=== PATIENT | male | born 1980 | race Hispanic/Latino ===

== ENCOUNTER 2019-09-19 21:08 | Emergency (ER) | payer SELFPAY ==
--- NOTE | 2019-09-19 22:09 | RAD ---
XR Chest Pa Lat STANDARD HISTORY: Patient was choking and has a cough. Findings: Heart size is within normal limits considering less than optimal inspiration. There is some increased parenchymal changes in the right infrahilar region which is felt to be just on the basis of poor inspiration, no focal infiltrates. IMPRESSION: Heart size upper limits of normal. No focal infiltrative process.
[2019-09-19 22:53] LABS: #Eosinphils 0.1 thou/uL (0.0-0.7); #Lymphocytes 2.4 thou/uL (1.20-3.40); #Monocytes 0.6 thou/uL (0.11-0.59); #Neutrophils 4.5 thou/uL (1.40-6.50); %Basophils 0.6 % (0.0-1.0); %Eosinophils 1.8 % (0.0-10.0); %Lymphocytes 30.9 % (21.0-51.0); %Monocytes 7.8 % (0.0-10.0); %Neutrophils 58.8 % (42.0-75.0); Hemoglobin 15.1 g/dL (14.0-18.0); Mean Corpuscular HGB CONC 36.2 g/dL (32.0-36.0); Mean Corpuscular Hemoglobin 32.1 pg (27.0-31.0); Mean Corpuscular Volume 88.5 fL (78.0-98.0); Mean Platelet Volume 8.4 fL (7.4-10.4); Platelet Count 163 thou/uL (130-400); RBC Distribution Width 10.8 % (11.5-14.5); Red Blood Cell (RBC) Count 4.71 mill/uL (4.70-6.10); White Blood Cell (WBC) Count 7.7 thou/uL (4.8-10.8)
[2019-09-19 23:03] LABS: Anion Gap 22 mmol/L (10-20); BUN (Urea Nitrogen) 10 mg/dL (8.9-20.6); Calc. Creatinine Clearance 0 mL/min (70-130); Calcium 9.2 mg/dL (7.8-10.44); Carbon Dioxide 20 mmol/L (22-29); Chloride 95 mmol/L (98-107); Estimated GFR-MDRD 89; Glucose 477 mg/dL (70-105); Potassium 3.8 mmol/L (3.5-5.1); Sodium 133 mmol/L (136-145)
[2019-09-20] MEDS ORDERED: Insulin Regular 300 UNITS/3 ML VIAL ONE (02:44)
--- NOTE | 2019-09-21 14:25 | EKG ---
Test Reason : Blood Pressure : / mmHG Vent. Rate : 102 BPM Atrial Rate : 102 BPM P-R Int : 150 ms QRS Dur : 104 ms QT Int : 360 ms P-R-T Axes : 046 059 056 degrees QTc Int : 469 ms Sinus tachycardia Possible Inferior infarct , age undetermined Abnormal ECG Confirmed by RAISA KELSEY MD ([id number]), editorial cartoonist DAVID CROSS ([id number]) on 09/21/2019 2:25:15 PM Referred By: Confirmed By:RAISA KELSEY MD
== END 2019-09-20 03:52 | disposition home or self-care (01) ==
LOC: ERS 21:08
DX: E11.65 Type 2 diabetes mellitus with hyperglycemia (principal); F17.210 Nicotine dependence, cigarettes, uncomplicated
CPT/HCPCS: 36415; 36416; 71046; 80048; 82010; 85025; 93005; 96361; 96374; J1815

== ENCOUNTER 2020-06-14 10:10 | Inpatient (IN) | payer OTHER, SELFPAY ==
[2020-06-14] MEDS ORDERED: Ketorolac Tromethamine 30 MG/ML VIAL ONE (10:53)
[2020-06-14] MEDS ORDERED: Acetaminophen 325 MG TAB ONE (10:53)
[2020-06-14 11:06] LABS: #Eosinphils 0.2 thou/uL (0.0-0.7); #Lymphocytes 2.3 thou/uL (1.20-3.40); #Monocytes 0.5 thou/uL (0.11-0.59); %Basophils 0.3 % (0.0-1.0); %Eosinophils 2.3 % (0.0-10.0); %Lymphocytes 22.9 % (21.0-51.0); %Monocytes 5.2 % (0.0-10.0); %Neutrophils 69.2 % (42.0-75.0); Hemoglobin 13.6 g/dL (14.0-18.0); Mean Corpuscular HGB CONC 34.6 g/dL (32.0-36.0); Mean Corpuscular Hemoglobin 31.2 pg (27.0-31.0); Mean Corpuscular Volume 90.1 fL (78.0-98.0); Mean Platelet Volume 7.5 fL (7.4-10.4); Platelet Count 352 thou/uL (130-400); RBC Distribution Width 10.6 % (11.5-14.5); Red Blood Cell (RBC) Count 4.37 mill/uL (4.70-6.10)
[2020-06-14 11:35] LABS: Lactic Acid 1.8 mmol/L (0.5-2.2)
[2020-06-14 11:37] LABS: Albumin 3.8 g/dL (3.5-5.0); Anion Gap 14 mmol/L (10-20); BUN (Urea Nitrogen) 30 mg/dL (8.9-20.6); Bilirubin, Total 0.3 mg/dL (0.2-1.2); Calc. Creatinine Clearance 0 mL/min (70-130); Calcium 9.6 mg/dL (7.8-10.44); Carbon Dioxide 26 mmol/L (22-29); Chloride 97 mmol/L (98-107); Estimated GFR-MDRD 84; Glucose 381 mg/dL (70-105); Potassium 5.2 mmol/L (3.5-5.1); Protein, Total 7.9 g/dL (6.0-8.3); Sodium 132 mmol/L (136-145)
[2020-06-14 11:38] LABS: ALT (SGPT) 49 U/L (8-55); AST (SGOT) 25 U/L (5-34); Alkaline Phosphatase 95 U/L (40-110); Globulin 4.1 g/dL (2.4-3.5)
--- NOTE | 2020-06-14 12:14 | CT ---
EXAM: CT NECK SOFT TISSUE POST CONTRAST: HISTORY:Infection. Infection the back of the neck. Worsening. Evaluate for possible abscess. COMPARISON:None CORRELATION:None FINDINGS: Brain parenchyma: No pathologic enhancement of the visualized brain parenchyma. Sinuses: Adequate aeration of the visualized paranasal sinuses and mastoid air cells. Orbits: Appropriate location of the ocular lenses. Symmetric attenuation the optic nerves and ocular rectus muscles. Retrobulbar fat is preserved. Nasopharynx:Adequate aeration. No mucosal abnormality. Oral cavity:Aerodigestive tract is patent. No mucosal abnormality. Limited evaluation of the oral cav ity due to dental amalgam artifact. Midline fatty raphae of the tongue is preserved. Hypopharynx: No mucosal abnormality. Larynx: No mucosal abnormality. Paraspinal muscles: Symmetric attenuation of the paraspinal muscles and symmetric attenuation of the sternocleidomastoid muscles.. Parotid and salivary glands: Symmetric attenuation of the parotid and submandibular glands Thyroid gland: Unremarkable. Spine: Vertebral body height is maintained. No fracture. No significant central canal stenosis or sig nificant neural foraminal narrowing. Limited evaluation due to technique. Lymph nodes: No evidence of lymphadenopathy by size criteria Lung apices and upper mediastinum: No acute abnormality. Soft tissues: There is induration and edema involving the posterior soft tissues starting at the occi put and extending to the CT for level. The edema is somewhat heterogeneous, not well-defined and may represent a developing fluid collection/abscess. Given the ill-defined borders, drainage is not l ikely possible at this time. There is mild hyperemia reaction of the underlying adventitia which is just superficial to the posterior paraspinal muscles and muscles at the base of the scalp. Obvious in tramuscular edema/abscess is not appreciated. IMPRESSION: 1. Infectious and inflammatory changes along the posterior soft tissues as described above. This abno rmality measures at least 9.0 x 2.6 cm in the axial plane, at the skull base
[2020-06-14] MEDS ORDERED: Vancomycin 1 GM/200 ML BAG ONE (13:10)
[2020-06-14] MEDS ORDERED: Clindamycin/D5W 900 mg/50 ml Premix Bag ONE (13:10)
[2020-06-14] MEDS ORDERED: Cefepime 2 GM VIAL ONE (13:10)
[2020-06-14] MEDS ORDERED: Iopamidol-370 76% 500 ML 1 ML ONE (15:19)
[2020-06-14] MEDS ORDERED: Ondansetron PF 4 MG/2 ML Vial IVP PRN (15:45)
[2020-06-14] MEDS ORDERED: Ondansetron ODT 4 MG TAB SL PRN (15:45)
[2020-06-14] MEDS ORDERED: Acetaminophen 325 MG TAB PO PRN ×2 (15:45→15:56)
[2020-06-14] MEDS ORDERED: Dextrose 5% in Water 1,000 ML IV PRN (15:56)
[2020-06-14] MEDS ORDERED: Dextrose 50% Abboject 50 ML SYRINGE SLOW IVP PRN (15:56)
[2020-06-14] MEDS ORDERED: hydrALAZINE 20 MG/ML VIAL SLOW IVP PRN (15:56)
[2020-06-14] MEDS ORDERED: cloNIDine 0.1 MG TAB PO PRN (16:24)
[2020-06-14 16:32] VITALS: BMI 23.8
[2020-06-14] MEDS ORDERED: cefTRIAXone\\ROCEPHIN 1 GM in Sodium Chloride 0.9% 100 ML IVPB SCH (17:00)
[2020-06-14] MEDS: HumaLOG 300 UNITS/3 ML VIAL SC PRN ×2 (17:20→20:30)
[2020-06-14] MEDS ORDERED: traMADol HCl 50 MG TAB PO SCH (20:15)
[2020-06-14] MEDS: Famotidine 20 MG TAB PO SCH (20:29)
[2020-06-14] MEDS ORDERED: Vancomycin 1 GM in Premix Bag 1 BAG IVPB SCH (21:00)
--- NOTE | 2020-06-14 21:46 | HP ---
PRIMARY CARE PHYSICIAN: The patient currently does not have a primary care physician. CHIEF COMPLAINT: Pain and swelling in the neck. HISTORY OF PRESENT ILLNESS: Mr. Miguel A Brady is a 39-year-old gentleman, who has a history of diabetes mellitus. He says that about 2 weeks ago, he noticed pain and swelling in the back of his neck. This history was obtained through the aid of the tax associate attorney service and the tax associate attorney was Dean, #[id number]. Mr. Grady is a 39-year-old gentleman, who reports pain in the back of his neck which started about 2 weeks ago. He attributed to working out in the sun, where he has been getting a rash on the back of the neck, but then the rash got progressively worse to the point where he could barely bend his neck. He went to a local clinic and was prescribed some antibiotics, which did not help. He denies any injury. He denies any insect bite, etc. As a result, he came to the ER for evaluation. CT scan was done of the neck, which shows some soft tissue swelling. No evidence of any abscess, but he is being admitted for further evaluation. Otherwise, the patient denies any fevers, no chills, no nausea, no vomiting, no chest pain, no shortness of breath, no other symptoms. REVIEW OF SYSTEMS: All systems were reviewed and are negative except for that mentioned in the history of present illness. PAST MEDICAL HISTORY: Significant for diabetes mellitus. PAST SURGICAL HISTORY: Negative. ALLERGIES: NO KNOWN DRUG ALLERGIES. SOCIAL HISTORY: He is , but his lives in [place]. No children. He is a nonsmoker. He occasionally drinks, but he says he quit a month ago. FAMILY HISTORY: Diabetes in his mother. CURRENT MEDICATIONS: Include metformin. PHYSICAL EXAMINATION: GENERAL: He is alert and oriented. He appears to be in no acute distress. He is well developed and well nourished. VITAL SIGNS: Blood pressure was 134/91, heart rate 80, respiratory rate of 18, temperature is 98.5, and O2 saturation is 100% on room air. HEENT: Pupils are equal, round, and reactive. Extraocular muscles are intact. Sclerae anicteric. Throat, no erythema. NECK: He does have a fairly large area of induration and redness on the posterior aspect of his neck extending into the lower part of the scalp. There is an area of some vesicular looking lesions and it extends up into the upper back. There is no evidence of any fluctuance. LUNGS: Clear to auscultation. No wheezing. No rales. No rhonchi. CARDIOVASCULAR: He has a normal S1 and S2. There is no S3 or S4. No murmurs, clicks, or rubs. ABDOMEN: Soft. It is nontender, nondistended. Positive for bowel sounds. No rebound. No guarding. No organomegaly. EXTREMITIES: The neck changes as previously mentioned and no other upper or lower extremity changes. NEUROLOGIC: Cranial nerves 2 through 12 are intact. SKIN AND INTEGUMENT: The skin changes as previously mentioned. LABORATORY RESULTS: Sodium 132, potassium 5.2, chloride is 97, CO2 is 26, BUN of 30, creatinine 1.0, glucose is 381. White blood cell count is 10, hemoglobin 13.6, hematocrit is 39.4, and platelet count 352. ASSESSMENT: This is a pleasant 39-year-old gentleman, who has a cellulitis of the neck and has failed outpatient treatment. With regards to the neck, it appears as if there is actually more inflammatory change without, infection as opposed to purely infectious change and this could represent just a severe burn. However cellulitis is also a possibility. He will be brought into the hospital and placed on IV antibiotics to cover the usual organisms including Staph and strep and have the area marked and follow him clinically. We will also place cool compress to the area as well. Diabetes mellitus. We will continue metformin, as well as sliding scale insulin. Deep venous thrombosis prophylaxis will be with SCDs. Job ID: [id number] [facility]
[2020-06-15] MEDS: Vancomycin HCl 1.25 GM in Sodium Chloride 0.9% 250 ML 250 ML IVPB SCH ×2 (02:08→14:12)
[2020-06-15 05:49] LABS: #Eosinphils 0.3 thou/uL (0.0-0.7); #Monocytes 0.7 thou/uL (0.11-0.59); #Neutrophils 5.3 thou/uL (1.40-6.50); %Basophils 0.3 % (0.0-1.0); %Eosinophils 3.3 % (0.0-10.0); %Lymphocytes 32.6 % (21.0-51.0); %Neutrophils 56.7 % (42.0-75.0); Hemoglobin 12.6 g/dL (14.0-18.0); Mean Corpuscular HGB CONC 33.1 g/dL (32.0-36.0); Mean Corpuscular Hemoglobin 30.1 pg (27.0-31.0); Mean Corpuscular Volume 90.8 fL (78.0-98.0); Mean Platelet Volume 7.4 fL (7.4-10.4); Platelet Count 330 thou/uL (130-400); RBC Distribution Width 10.7 % (11.5-14.5); Red Blood Cell (RBC) Count 4.19 mill/uL (4.70-6.10); White Blood Cell (WBC) Count 9.3 thou/uL (4.8-10.8)
[2020-06-15 06:06] LABS: Anion Gap 12 mmol/L (10-20); BUN (Urea Nitrogen) 18 mg/dL (8.9-20.6); Calc. Creatinine Clearance 139 mL/min (70-130); Calcium 8.8 mg/dL (7.8-10.44); Carbon Dioxide 23 mmol/L (22-29); Chloride 103 mmol/L (98-107); Estimated GFR-MDRD Greater than 90; Glucose 214 mg/dL (70-105); Potassium 4.4 mmol/L (3.5-5.1); Sodium 134 mmol/L (136-145)
[2020-06-15] MEDS: HumaLOG 300 UNITS/3 ML VIAL SC PRN ×3 (06:21→20:07)
[2020-06-15] MEDS: Famotidine 20 MG TAB PO SCH ×2 (07:46→20:06)
--- NOTE | 2020-06-15 11:09 | PDOC.HOSPP ---
- Subjective Encounter Date: 06/15/20 Encounter Time: 08:40 Subjective: Patient seen in follow-up regarding neck infection. He reports pain over the back of his neck. Denies any fevers or chills. - Objective Vital Signs & Weight: Vital Signs (12 hours) Temp Pulse Resp BP Pulse Ox 06/15/20 08:00 100 06/15/20 07:27 98.9 F 84 20 105/73 100 06/15/20 04:15 98.0 F 84 16 136/90 100 06/15/20 00:05 97.8 F 79 16 150/93 H 100 Weight Weight 156 lb 14.4 oz I&O: 06/14/20 06/15/20 06/16/20 06:59 06:59 06:59 Intake Total 645 360 Balance 645 360 Result Diagrams: 06/15/20 05:27 06/15/20 05:15 Additional Labs: Accuchecks 06/14/20 16:33 POC Glucose 268 H I reviewed patient's labs and MAR Hospitalist ROS - Review of Systems Constitutional: denies: fever, chills, sweats, weakness, malaise Cardiovascular: denies: chest pain, palpitations, orthopnea, paroxysmal noc. dyspnea, edema, light headedness Gastrointestinal: denies: nausea, vomiting, abdominal pain, diarrhea, constipation, melena, hematochezia Genitourinary: denies: dysuria, frequency, incontinence, hematuria, retention Musculoskeletal: reports: neck pain. denies: shoulder pain, arm pain, back pain, hand pain, leg pain, foot pain Neurological: denies: weakness, numbness, incoordination, change in speech, confusion, seizures - Medication Medications: Active Medications Generic Name Dose Route Start Last Admin Trade Name Freq PRN Reason Stop Dose Admin Acetaminophen 650 mg 06/14/20 15:56 06/14/20 17:18 Acetaminophen 325 Mg Tab PO 650 mg Q4H PRN Administration Headache/Fever/Mild Pain (1-3) Famotidine 20 mg 06/14/20 21:00 06/15/20 07:46 Famotidine 20 Mg Tab PO 20 mg BID PAOLO Administration Ceftriaxone Sodium 1 gm/ 100 mls @ 200 mls/hr 06/14/20 17:00 06/14/20 17:20 Sodium Chloride IVPB 100 mls 1700 PAOLO Administration Vancomycin HCl 1.25 gm/ Sodium 250 mls @ 166.667 mls/hr 06/15/20 02:00 06/15/20 02:08 Chloride IVPB 250 mls 0200,1400 PAOLO Administration Insulin Human Lispro 0 units 06/14/20 15:56 06/15/20 06:21 Humalog 300 Units/3 Ml Vial SC 4 unit .MODERATE SLIDING SC PRN Administration Moderate Correctional Scale Insulin Human Lispro 0 units 06/14/20 15:56 06/14/20 20:30 Humalog 300 Units/3 Ml Vial SC 4 unit .BEDTIME SLIDING SC PRN Administration Bedtime Correctional Scale - Exam General Appearance: awake alert Eye: anicteric sclera ENT: normocephalic atraumatic Neck: supple, symmetric, no thyromegaly Neck - other findings: Swelling over the back of the neck, mildly tender, in the paraspinal region Heart: RRR, no gallops, no rubs, normal peripheral pulses Respiratory: CTAB, no wheezes, no rales, no ronchi, normal chest expansion Gastrointestinal: soft, non-tender, non-distended, normal bowel sounds Extremities: no cyanosis Skin: normal turgor Musculoskeletal: no muscle wasting Psychiatric: normal affect, normal behavior, oriented to person, oriented to place Hosp A/P (1) Neck infection Code(s): L08.9 - LOCAL INFECTION OF THE SKIN AND SUBCUTANEOUS TISSUE, UNSP Status: Acute (2) Hyponatremia Code(s): E87.1 - HYPO-OSMOLALITY AND HYPONATREMIA Status: Acute (3) Diabetes mellitus type 2 in nonobese Code(s): E11.9 - TYPE 2 DIABETES MELLITUS WITHOUT COMPLICATIONS Status: Chr onic (4) Hypertension Code(s): I10 - ESSENTIAL (PRIMARY) HYPERTENSION Status: Chronic (5) Dyslipidemia Code(s): E78.5 - HYPERLIPIDEMIA, UNSPECIFIED Status: Chronic (6) Hyperkalemia Code(s): E87.5 - HYPERKALEMIA Status: Resolved - Plan Unclear whether we are dealing with a true infection in the paraspinal muscles. Patient is afebrile, does not have leukocytosis. We will continue ceftriaxone for now and consult ID service for opinion and help with management. Hyponatremia mild, likely asymptomatic. Resume glipizide and metformin, continue Accu-Cheks and insulin sliding scale. Resume lisinopril 20 mg daily, continue to monitor vital signs and titrate antih ypertensives as needed. Resume statin.
[2020-06-15 12:12] LABS: SARS-CoV-2 MS2 Positive; SARS-CoV-2 N Gene Negative; SARS-CoV-2 S Gene Negative; SARS-CoV-2 by NAA Not Detected (NotDetected); SARS-CoV-2 orf1ab Negative
--- NOTE | 2020-06-15 13:33 | CON ---
DATE OF CONSULTATION: 06/15/2020 REASON FOR CONSULTATION: Inflammatory process in the posterior neck. HISTORY OF PRESENT ILLNESS: A 39-year-old who does not have any major past medical history. 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 Now, it developed into overt inflammatory process over the past few days and he was admitted, started on broad-spectrum coverage. Denies headaches. No visual symptoms, sore throat, odynophagia, or dysphagia. No cough or sputum production or chest pain. No dyspnea. No abdominal pain or diarrhea. No joint symptoms. Moves extremities equally. PAST MEDICAL HISTORY: He has had a few minor things that led to ER visits like back pain in months. He had an episode of choking after eating chicken. He does not take medication routinely, he has been diagnosed with type 2 diabetes now and hyperlipidemia. CURRENT MEDICATIONS: Include: 1. Ceftriaxone. 2. Vancomycin. 3. Zocor. 4. Insulin. 5. Pepcid. 6. Glipizide. SOCIAL HISTORY: He is , lives with a and children, lives in [place]. ALLERGIES: NO ALLERGY HISTORY. PHYSICAL EXAMINATION: VITAL SIGNS: Essentially normal. Slight elevation of systolic blood pressure. SKIN: The area of erythema and swelling of the posterior neck, starting at the occiput in a very symmetric distribution, extending towards the mid level of his posterior neck region with moderate tenderness. No purulent drainage noted. A few areas of folliculitis noted. No lymphadenopathy. HEENT: Ocular movements conjugate. Oral cavity normal. NECK: Supple. LUNGS: Symmetric, clear breath sounds. HEART: S1 and S2. Regular rate. No S3 or S4. ABDOMEN: Soft, not distended or tender. No ascites. No bladder distention. EXTREMITIES: No joint inflammatory activity. Moves extremities equally. NEUROLOGIC: Cognitive function appears to be intact. Speech is normal, recollection, orientation, etc. LABORATORY DATA: Latest white cell count 9.3, hemoglobin 12.6, MCV 90, and platelets 330. Creatinine 0.73 and sodium 134. ASSESSMENT: 1. Type 2 diabetes. 2. Hyperlipidemia. 3. Inflammatory process associated with folliculitis. 4. Cellulitis, likely early abscess formation in the posterior neck. DISCUSSION: Most likely scenario is staphylococcal folliculitis with abscess, phlegmon posterior neck region, will likely require surgical debridement. I am not sure he is ready now for it, but I agree with the current regimen, probably switch him to cefazolin instead of Rocephin, which has less protein binding. Job ID: [id number] [facility] [place]
[2020-06-15] MEDS: CEFAZOLIN 2 GM in Premix Bag 1 BAG IVPB SCH ×2 (14:48→21:23)
[2020-06-15] MEDS: metFORMIN 500 MG TAB PO SCH (17:16)
[2020-06-15] MEDS: traMADol HCl 50 MG TAB PO PRN (17:16)
[2020-06-15] MEDS: Simvastatin 5 MG TAB PO SCH (20:07)
[2020-06-16 01:29] LABS: Vancomycin, Trough 9.1 ug/mL
[2020-06-16] MEDS: Vancomycin HCl 1.25 GM in Sodium Chloride 0.9% 250 ML 250 ML IVPB SCH ×3 (02:04→17:15)
[2020-06-16] MEDS: traMADol HCl 50 MG TAB PO PRN ×2 (04:48→19:53)
[2020-06-16] MEDS: CEFAZOLIN 2 GM in Premix Bag 1 BAG IVPB SCH ×3 (05:15→22:46)
[2020-06-16] MEDS: HumaLOG 300 UNITS/3 ML VIAL SC PRN ×2 (05:50→11:45)
[2020-06-16] MEDS: Lisinopril 20 MG TAB PO SCH (07:58)
[2020-06-16] MEDS: metFORMIN 500 MG TAB PO SCH ×2 (07:59→17:15)
[2020-06-16] MEDS: glipiZIDE 10 MG TAB PO SCH (07:59)
[2020-06-16] MEDS: Famotidine 20 MG TAB PO SCH ×2 (07:59→19:52)
[2020-06-16 08:14] LABS: #Eosinphils 0.3 thou/uL (0.0-0.7); #Lymphocytes 2.8 thou/uL (1.20-3.40); #Monocytes 0.5 thou/uL (0.11-0.59); #Neutrophils 5.5 thou/uL (1.40-6.50); %Basophils 0.2 % (0.0-1.0); %Eosinophils 3.1 % (0.0-10.0); %Lymphocytes 30.9 % (21.0-51.0); %Monocytes 5.7 % (0.0-10.0); %Neutrophils 60.1 % (42.0-75.0); Hemoglobin 13.5 g/dL (14.0-18.0); Mean Corpuscular HGB CONC 32.9 g/dL (32.0-36.0); Mean Corpuscular Hemoglobin 30.2 pg (27.0-31.0); Mean Corpuscular Volume 91.8 fL (78.0-98.0); Mean Platelet Volume 7.6 fL (7.4-10.4); Platelet Count 322 thou/uL (130-400); RBC Distribution Width 10.8 % (11.5-14.5); Red Blood Cell (RBC) Count 4.48 mill/uL (4.70-6.10); White Blood Cell (WBC) Count 9.1 thou/uL (4.8-10.8)
[2020-06-16 08:35] LABS: Anion Gap 15 mmol/L (10-20); BUN (Urea Nitrogen) 12 mg/dL (8.9-20.6); Calc. Creatinine Clearance 127 mL/min (70-130); Calcium 9.2 mg/dL (7.8-10.44); Carbon Dioxide 22 mmol/L (22-29); Chloride 101 mmol/L (98-107); Estimated GFR-MDRD Greater than 90; Glucose 263 mg/dL (70-105); Potassium 4.7 mmol/L (3.5-5.1); Sodium 133 mmol/L (136-145)
--- NOTE | 2020-06-16 13:21 | PDOC.HOSPP ---
- Subjective Encounter Date: 06/16/20 Encounter Time: 10:00 Subjective: Patient seen for follow-up regarding neck infection. Reports pain is better. Denies fever. - Objective Vital Signs & Weight: Vital Signs (12 hours) Temp Pulse Resp BP Pulse Ox 06/16/20 08:00 100 06/16/20 06:58 98.0 F 80 18 138/90 100 Weight Weight 156 lb 14.4 oz I&O: 06/15/20 06/16/20 06/17/20 06:59 06:59 06:59 Intake Total 645 1570 360 Balance 645 1570 360 Result Diagrams: 06/16/20 07:54 06/16/20 07:54 Additional Labs: Accuchecks 06/15/20 06/15/20 06/15/20 20:11 16:11 11:15 POC Glucose 262 H 209 H 306 H 06/14/20 20:11 POC Glucose 312 H I reviewed patient's labs and MAR Hospitalist ROS - Review of Systems Cardiovascular: denies: chest pain, palpitations, orthopnea, paroxysmal noc. dyspnea, edema, light headedness Musculoskeletal: reports: neck pain. denies: shoulder pain, arm pain, back pain, hand pain, leg pain, foot pain - Medication Medications: Active Medications Generic Name Dose Route Start Last Admin Trade Name Freq PRN Reason Stop Dose Admin Acetaminophen 650 mg 06/14/20 15:56 06/14/20 17:18 Acetaminophen 325 Mg Tab PO 650 mg Q4H PRN Administration Headache/Fever/Mild Pain (1-3) Famotidine 20 mg 06/14/20 21:00 06/16/20 07:59 Famotidine 20 Mg Tab PO 20 mg BID PAOLO Administration Glipizide 10 mg 06/16/20 09:00 06/16/20 07:59 Glipizide 10 Mg Tab PO 10 mg DAILY PAOLO Administration Cefazolin Sodium/Dextrose 2 gm 50 mls @ 100 mls/hr 06/15/20 14:00 06/16/20 05:15 / Device IVPB 50 mls Q8HR POALO Administration Vancomycin HCl 1.25 gm/ Sodium 250 mls @ 166.667 mls/hr 06/16/20 02:00 06/16/20 09:33 Chloride IVPB 250 mls 0200,1000,1800 PAOLO Administration Insulin Human Lispro 0 units 06/14/20 15:56 06/16/20 11:45 Humalog 300 Units/3 Ml Vial SC 4 unit .MODERATE SLIDING SC PRN Administration Moderate Correctional Scale Insulin Human Lispro 0 units 06/14/20 15:56 06/15/20 20:07 Humalog 300 Units/3 Ml Vial SC 3 unit .BEDTIME SLIDING SC PRN Administration Bedtime Correctional Scale Lisinopril 20 mg 06/16/20 09:00 06/16/20 07:58 Lisinopril 20 Mg Tab PO 20 mg DAILY PAOLO Administration Metformin HCl 500 mg 06/15/20 17:00 06/16/20 07:59 Metformin 500 Mg Tab PO 500 mg BID-WM PAOLO Administration Simvastatin 10 mg 06/15/20 21:00 06/15/20 20:07 Simvastatin 5 Mg Tab PO 10 mg HS PAOLO Administration Tramadol HCl 50 mg 06/15/20 15:01 06/16/20 04:48 Tramadol Hcl 50 Mg Tab PO 50 mg Q6H PRN Administration Pain - Exam General Appearance: awake alert Eye: anicteric sclera ENT: normocephalic atraumatic Neck: supple Neck - other findings: Swelling over the upper half of neck, mildly tender Heart: RRR, no rubs Respiratory: CTAB Gastrointestinal: soft, non-tender Extremities: no clubbing Musculoskeletal: normal tone, no muscle wasting Psychiatric: normal affect, normal behavior Hosp A/P (1) Neck infection Code(s): L08.9 - LOCAL INFECTION OF THE SKIN AND SUBCUTANEOUS TISSUE, UNSP Status: Acute (2) Hyponatremia Code(s): E87.1 - HYPO-OSMOLALITY AND HYPONATREMIA Status: Acute (3) Diabetes mellitus type 2 in nonobese Code(s): E11.9 - TYPE 2 DIABETES MELLITUS WITHOUT COMPLICATIONS Status: Chronic (4) Hypertension Code(s): I10 - ESSENTIAL (PRIMARY) HYPERTENSION Status: Chronic (5) Dyslipidemia Code(s): E78.5 - HYPERLIPIDEMIA, UNSPECIFIED Status: Chronic (6) Hyperkalemia Code(s): E87.5 - HYPERKALEMIA Status: Resolved - Plan Continue IV cefazolin, await cultures. Appreciate ID service input. Hyponatremia mild, likely asymptomatic. Sugars are still high. Start Lantus insulin 6 units daily, continue glipizide and metformin, continue Accu-Cheks and insulin sliding scale. Continue lisinopril 20 mg daily, continue to monitor vital signs and titrate antihypertensives as needed. Continue statin.
[2020-06-16] MEDS ORDERED: Insulin Glargine 6 UNITS in Pre-Filled Syringe 1 EACH SC SCH (13:30)
[2020-06-16] MEDS: Simvastatin 5 MG TAB PO SCH (19:53)
[2020-06-17 01:27] LABS: Vancomycin, Trough 16.2 ug/mL
[2020-06-17] MEDS: Vancomycin HCl 1.25 GM in Sodium Chloride 0.9% 250 ML 250 ML IVPB SCH ×3 (02:14→17:27)
[2020-06-17] MEDS: traMADol HCl 50 MG TAB PO PRN ×2 (05:12→19:49)
[2020-06-17] MEDS: CEFAZOLIN 2 GM in Premix Bag 1 BAG IVPB SCH ×3 (05:14→21:14)
[2020-06-17 07:18] LABS: #Basophils 0.1 thou/uL (0.0-0.2); #Eosinphils 0.3 thou/uL (0.0-0.7); #Lymphocytes 2.5 thou/uL (1.20-3.40); #Monocytes 0.6 thou/uL (0.11-0.59); #Neutrophils 6.1 thou/uL (1.40-6.50); %Basophils 0.9 % (0.0-1.0); %Eosinophils 3.1 % (0.0-10.0); %Lymphocytes 26.1 % (21.0-51.0); %Monocytes 5.7 % (0.0-10.0); %Neutrophils 64.2 % (42.0-75.0); Hemoglobin 12.7 g/dL (14.0-18.0); Mean Corpuscular HGB CONC 33.7 g/dL (32.0-36.0); Mean Corpuscular Hemoglobin 30.6 pg (27.0-31.0); Mean Corpuscular Volume 90.8 fL (78.0-98.0); Mean Platelet Volume 7.8 fL (7.4-10.4); Platelet Count 303 thou/uL (130-400); RBC Distribution Width 10.6 % (11.5-14.5); Red Blood Cell (RBC) Count 4.16 mill/uL (4.70-6.10); White Blood Cell (WBC) Count 9.6 thou/uL (4.8-10.8)
[2020-06-17 07:33] LABS: Anion Gap 15 mmol/L (10-20); BUN (Urea Nitrogen) 10 mg/dL (8.9-20.6); Calc. Creatinine Clearance 131 mL/min (70-130); Calcium 8.9 mg/dL (7.8-10.44); Carbon Dioxide 24 mmol/L (22-29); Chloride 101 mmol/L (98-107); Estimated GFR-MDRD Greater than 90; Glucose 263 mg/dL (70-105); Sodium 136 mmol/L (136-145)
[2020-06-17] MEDS ORDERED: Insulin Glargine 6 UNITS in Pre-Filled Syringe 1 EACH SC SCH (09:00)
[2020-06-17] MEDS: Famotidine 20 MG TAB PO SCH ×2 (09:11→19:51)
[2020-06-17] MEDS: Lisinopril 20 MG TAB PO SCH (09:11)
[2020-06-17] MEDS: glipiZIDE 10 MG TAB PO SCH (09:11)
[2020-06-17] MEDS: metFORMIN 500 MG TAB PO SCH ×2 (09:12→17:27)
[2020-06-17] MEDS ORDERED: Insulin Glargine 4 UNITS in Pre-Filled Syringe 1 EACH SC SCH (12:00)
--- NOTE | 2020-06-17 12:00 | PDOC.HOSPP ---
- Subjective Encounter Date: 06/17/20 Encounter Time: 09:40 Subjective: Patient seen in follow-up for neck infection. He still has some pain over his neck. - Objective Vital Signs & Weight: Vital Signs (12 hours) Temp Pulse Resp BP BP Pulse Ox 06/17/20 09:12 99 06/17/20 09:11 143/88 H 06/17/20 07:22 98.1 F 81 16 143/88 H 99 06/17/20 04:00 97.9 F 75 18 157/94 H 99 06/17/20 00:00 97.9 F 84 18 135/95 H 98 Weight Weight 156 lb 14.4 oz I&O: 06/16/20 06/17/20 06/18/20 06:59 06:59 06:59 Intake Total 1570 940 360 Balance 1570 940 360 Result Diagrams: 06/17/20 06:25 06/17/20 06:25 Additional Labs: Accuchecks 06/17/20 06/17/20 06/16/20 11:17 05:01 19:53 POC Glucose 269 H 261 H 169 H 06/16/20 06/16/20 06/16/20 15:46 11:16 05:20 POC Glucose 134 H 240 H 279 H I reviewed patient's labs and MAR Hospitalist ROS - Review of Systems Cardiovascular: denies: chest pain, palpitations, orthopnea, paroxysmal noc. dyspnea, edema, light headedness Gastrointestinal: denies: nausea, vomiting, abdominal pain, diarrhea, constipation, melena, hematochezia Musculoskeletal: reports: neck pain Skin: reports: rash - Medication Medications: Active Medications Generic Name Dose Route Start Last Admin Trade Name Freq PRN Reason Stop Dose Admin Acetaminophen 650 mg 06/14/20 15:56 06/14/20 17:18 Acetaminophen 325 Mg Tab PO 650 mg Q4H PRN Administration Headache/Fever/Mild Pain (1-3) Famotidine 20 mg 06/14/20 21:00 06/17/20 09:11 Famotidine 20 Mg Tab PO 20 mg BID PAOLO Administration Glipizide 10 mg 06/16/20 09:00 06/17/20 09:11 Glipizide 10 Mg Tab PO 10 mg DAILY PAOLO Administration Cefazolin Sodium/Dextrose 2 gm 50 mls @ 100 mls/hr 06/15/20 14:00 06/17/20 05:14 / Device IVPB 50 mls Q8HR PAOLO Administration Vancomycin HCl 1.25 gm/ Sodium 250 mls @ 166.667 mls/hr 06/16/20 02:00 06/17/20 09:50 Chloride IVPB 250 mls 0200,1000,1800 PAOLO Administration Insulin Glargine 6 units/ 0.06 mls @ 0 mls/hr 06/17/20 09:00 06/17/20 09:12 Miscellaneous Medication SC 0.06 mls QAM PAOLO Administration Insulin Human Lispro 0 units 06/14/20 15:56 06/16/20 11:45 Humalog 300 Units/3 Ml Vial SC 4 unit .MODERATE SLIDING SC PRN Administration Moderate Correctional Scale Insulin Human Lispro 0 units 06/14/20 15:56 06/15/20 20:07 Humalog 300 Units/3 Ml Vial SC 3 unit .BEDTIME SLIDING SC PRN Administration Bedtime Correctional Scale Lisinopril 20 mg 06/16/20 09:00 06/17/20 09:11 Lisinopril 20 Mg Tab PO 20 mg DAILY PAOLO Administration Metformin HCl 500 mg 06/15/20 17:00 06/17/20 09:12 Metformin 500 Mg Tab PO 500 mg BID-WM PAOLO Administration Simvastatin 10 mg 06/15/20 21:00 06/16/20 19:53 Simvastatin 5 Mg Tab PO 10 mg HS PAOLO Administration Tramadol HCl 50 mg 06/15/20 15:01 06/17/20 05:12 Tramadol Hcl 50 Mg Tab PO 50 mg Q6H PRN Administration Pain - Exam General Appearance: awake alert Eye: anicteric sclera ENT: normocephalic atraumatic Neck: supple Neck - other findings: Swelling over the upper half of his neck posteriorly Heart: RRR Respiratory: CTAB Gastrointestinal: soft, non-tender Psychiatric: normal affect, normal behavior Hosp A/P (1) Neck infection Code(s): L08.9 - LOCAL INFECTION OF THE SKIN AND SUBCUTANEOUS TISSUE, UNSP Status: Acute (2) Diabetes mellitus type 2 in nonobese Code(s): E11.9 - TYPE 2 DIABETES MELLITUS WITHOUT COMPLICATIONS Status: Chronic (3) Hypertension Code(s): I10 - ESSENTIAL (PRIMARY) HYPERTENSION Status: Chronic (4) Dyslipidemia Code(s): E78.5 - HYPERLIPIDEMIA, UNSPECIFIED Status: Chronic (5) Hyperkalemia Code(s): E87.5 - HYPERKALEMIA Status: Resolved (6) Hyponatremia Code(s): E87.1 - HYPO-OSMOLALITY AND HYPONATREMIA Status: Resolved - Plan Continue IV cefazolin, 1 out of 2 blood cultures is growing micrococcus, likely contaminant. Hyponatremia resolved Sugars are still high. Increase Lantus to 10 units daily, continue glipizide and metformin, continue Accu-Cheks and insulin sliding scale. Blood pressure still high. Continue lisinopril 20 mg daily, add amlodipine 2.5 mg daily, continue to monitor vital signs and titrate antihypertensives as needed. Continue statin.
[2020-06-17] MEDS ORDERED: Amlodipine 5 MG TAB PO SCH (12:15)
[2020-06-17] MEDS: HumaLOG 300 UNITS/3 ML VIAL SC PRN (12:29)
[2020-06-17] MEDS: Simvastatin 5 MG TAB PO SCH (19:51)
[2020-06-18] MEDS: Vancomycin HCl 1.25 GM in Sodium Chloride 0.9% 250 ML 250 ML IVPB SCH ×3 (02:54→18:40)
[2020-06-18 05:45] LABS: #Basophils 0.1 thou/uL (0.0-0.2); #Eosinphils 0.3 thou/uL (0.0-0.7); #Lymphocytes 2.6 thou/uL (1.20-3.40); #Monocytes 0.5 thou/uL (0.11-0.59); #Neutrophils 5.1 thou/uL (1.40-6.50); %Basophils 0.6 % (0.0-1.0); %Eosinophils 3.8 % (0.0-10.0); %Lymphocytes 30.2 % (21.0-51.0); %Monocytes 5.7 % (0.0-10.0); %Neutrophils 59.7 % (42.0-75.0); Hemoglobin 12.7 g/dL (14.0-18.0); Mean Corpuscular HGB CONC 33.9 g/dL (32.0-36.0); Mean Corpuscular Hemoglobin 30.8 pg (27.0-31.0); Mean Platelet Volume 7.4 fL (7.4-10.4); Platelet Count 300 thou/uL (130-400); RBC Distribution Width 10.7 % (11.5-14.5); Red Blood Cell (RBC) Count 4.11 mill/uL (4.70-6.10); White Blood Cell (WBC) Count 8.6 thou/uL (4.8-10.8)
[2020-06-18] MEDS: CEFAZOLIN 2 GM in Premix Bag 1 BAG IVPB SCH ×3 (05:51→22:00)
[2020-06-18 06:05] LABS: Anion Gap 12 mmol/L (10-20); BUN (Urea Nitrogen) 10 mg/dL (8.9-20.6); Calc. Creatinine Clearance 143 mL/min (70-130); Calcium 8.9 mg/dL (7.8-10.44); Carbon Dioxide 26 mmol/L (22-29); Chloride 102 mmol/L (98-107); Estimated GFR-MDRD Greater than 90; Glucose 170 mg/dL (70-105); Potassium 4.1 mmol/L (3.5-5.1); Sodium 136 mmol/L (136-145)
[2020-06-18] MEDS: Lisinopril 20 MG TAB PO SCH (10:07)
[2020-06-18] MEDS: Famotidine 20 MG TAB PO SCH ×2 (10:08→19:53)
[2020-06-18] MEDS: glipiZIDE 10 MG TAB PO SCH (10:08)
[2020-06-18] MEDS: metFORMIN 500 MG TAB PO SCH ×2 (10:08→18:40)
[2020-06-18] MEDS: Amlodipine 5 MG TAB PO SCH (10:08)
[2020-06-18] MEDS: Insulin Glargine 10 UNITS in Pre-Filled Syringe 1 EACH SC SCH (10:09)
--- NOTE | 2020-06-18 11:09 | PDOC.HOSPP ---
- Subjective Encounter Date: 06/18/20 Encounter Time: 07:40 Subjective: Patient seen for follow-up for neck infection. Denies any new complaints. - Objective Vital Signs & Weight: Vital Signs (12 hours) Temp Pulse Resp BP BP BP Pulse Ox 06/18/20 10:09 99 06/18/20 10:08 84 120/83 06/18/20 10:07 120/83 06/18/20 07:28 98.2 F 87 12 136/88 99 06/18/20 05:01 98.0 F 80 18 147/87 H 99 06/18/20 00:00 98.1 F 81 18 124/82 98 Weight Weight 156 lb 14.4 oz I&O: 06/17/20 06/18/20 06/19/20 06:59 06:59 06:59 Intake Total 940 2940 Balance 940 2940 Result Diagrams: 06/18/20 05:28 06/18/20 05:28 Additional Labs: Accuchecks 06/18/20 06/17/20 06/17/20 05:04 19:55 15:54 POC Glucose 157 H 218 H 108 H 06/17/20 11:17 POC Glucose 269 H I reviewed patient's labs and [facility] Hospitalist ROS - Review of Systems Cardiovascular: denies: chest pain, palpitations, orthopnea, paroxysmal noc. dyspnea, edema, light headedness Gastrointestinal: denies: nausea, vomiting, diarrhea, constipation, melena Musculoskeletal: reports: neck pain - Medication Medications: Active Medications Generic Name Dose Route Start Last Admin Trade Name Freq PRN Reason Stop Dose Admin Acetaminophen 650 mg 06/14/20 15:56 06/14/20 17:18 Acetaminophen 325 Mg Tab PO 650 mg Q4H PRN Administration Headache/Fever/Mild Pain (1-3) Amlodipine Besylate 2.5 mg 06/18/20 09:00 06/18/20 10:08 Amlodipine 5 Mg Tab PO 2.5 mg DAILY PAOLO Administration Famotidine 20 mg 06/14/20 21:00 06/18/20 10:08 Famotidine 20 Mg Tab PO 20 mg BID PAOLO Administration Glipizide 10 mg 06/16/20 09:00 06/18/20 10:08 Glipizide 10 Mg Tab PO 10 mg DAILY PAOLO Administration Cefazolin Sodium/Dextrose 2 gm 50 mls @ 100 mls/hr 06/15/20 14:00 06/18/20 05:51 / Device IVPB 50 mls Q8HR PAOLO Administration Vancomycin HCl 1.25 gm/ Sodium 250 mls @ 166.667 mls/hr 06/16/20 02:00 06/18/20 10:09 Chloride IVPB 250 mls 0200,1000,1800 PAOLO Administration Insulin Glargine 10 units/ 0.1 mls @ 0 mls/hr 06/18/20 09:00 06/18/20 10:09 Miscellaneous Medication SC 0.1 mls QAM PAOLO Administration Insulin Human Lispro 0 units 06/14/20 15:56 06/17/20 12:29 Humalog 300 Units/3 Ml Vial SC 6 unit .MODERATE SLIDING SC PRN Administration Moderate Correctional Scale Insulin Human Lispro 0 units 06/14/20 15:56 06/15/20 20:07 Humalog 300 Units/3 Ml Vial SC 3 unit .BEDTIME SLIDING SC PRN Administration Bedtime Correctional Scale Lisinopril 20 mg 06/16/20 09:00 06/18/20 10:07 Lisinopril 20 Mg Tab PO 20 mg DAILY PAOLO Administration Metformin HCl 500 mg 06/15/20 17:00 06/18/20 10:08 Metformin 500 Mg Tab PO 500 mg BID-WM PAOLO Administration Simvastatin 10 mg 06/15/20 21:00 06/17/20 19:51 Simvastatin 5 Mg Tab PO 10 mg HS PAOLO Administration Tramadol HCl 50 mg 06/15/20 15:01 06/17/20 19:49 Tramadol Hcl 50 Mg Tab PO 50 mg Q6H PRN Administration Pain - Exam General Appearance: NAD Eye: anicteric sclera ENT: normocephalic atraumatic Neck: supple Heart: RRR Respiratory: CTAB Gastrointestinal: soft, non-tender Skin: no rashes Psychiatric: normal affect, normal behavior Hosp A/P (1) Neck infection Code(s): L08.9 - LOCAL INFECTION OF THE SKIN AND SUBCUTANEOUS TISSUE, UNSP Status: Acute (2) Diabetes mellitus type 2 in nonobese Code(s): E11.9 - TYPE 2 DIABETES MELLITUS WITHOUT COMPLICATIONS Status: Chronic (3) Hypertension Code(s): I10 - ESSENTIAL (PRIMARY) HYPERTENSION Status: Chronic (4) Dyslipidemia Code(s): E78.5 - HYPERLIPIDEMIA, UNSPECIFIED Status: Chronic (5) Hyperkalemia Code(s): E87.5 - HYPERKALEMIA Status: Resolved (6) Hyponatremia Code(s): E87.1 - HYPO-OSMOLALITY AND HYPONATREMIA Status: Resolved - Plan continue antibiotics, out of bed/ambulate Continue IV cefazolin, await final blood culture report. Hyponatremia resolved Blood sugars have improved. Continue Lantus 10 units daily, glipizide and metformin, continue Accu-Cheks and insulin sliding scale. Blood pressure has improved. Continue lisinopril 20 mg daily and amlodipine 2.5 mg daily.
[2020-06-18] MEDS: HumaLOG 300 UNITS/3 ML VIAL SC PRN (12:33)
[2020-06-18] MEDS: traMADol HCl 50 MG TAB PO PRN (14:35)
[2020-06-18] MEDS: Simvastatin 5 MG TAB PO SCH (19:53)
[2020-06-19] MEDS: Vancomycin HCl 1.25 GM in Sodium Chloride 0.9% 250 ML 250 ML IVPB SCH ×4 (03:37→20:50)
[2020-06-19] MEDS: CEFAZOLIN 2 GM in Premix Bag 1 BAG IVPB SCH ×3 (05:32→23:00)
[2020-06-19 05:48] LABS: #Eosinphils 0.4 thou/uL (0.0-0.7); #Lymphocytes 2.8 thou/uL (1.20-3.40); #Monocytes 0.6 thou/uL (0.11-0.59); #Neutrophils 4.7 thou/uL (1.40-6.50); %Basophils 0.6 % (0.0-1.0); %Eosinophils 4.5 % (0.0-10.0); %Lymphocytes 33.3 % (21.0-51.0); %Monocytes 6.6 % (0.0-10.0); Hemoglobin 12.3 g/dL (14.0-18.0); Mean Corpuscular HGB CONC 34.4 g/dL (32.0-36.0); Mean Corpuscular Hemoglobin 30.9 pg (27.0-31.0); Mean Corpuscular Volume 89.8 fL (78.0-98.0); Mean Platelet Volume 7.8 fL (7.4-10.4); Platelet Count 283 thou/uL (130-400); RBC Distribution Width 10.6 % (11.5-14.5); Red Blood Cell (RBC) Count 3.97 mill/uL (4.70-6.10); White Blood Cell (WBC) Count 8.5 thou/uL (4.8-10.8)
[2020-06-19 06:13] LABS: Anion Gap 13 mmol/L (10-20); BUN (Urea Nitrogen) 9 mg/dL (8.9-20.6); Calc. Creatinine Clearance 141 mL/min (70-130); Calcium 8.8 mg/dL (7.8-10.44); Carbon Dioxide 24 mmol/L (22-29); Chloride 104 mmol/L (98-107); Estimated GFR-MDRD Greater than 90; Glucose 153 mg/dL (70-105); Potassium 3.7 mmol/L (3.5-5.1); Sodium 137 mmol/L (136-145)
[2020-06-19] MEDS: Amlodipine 5 MG TAB PO SCH (08:58)
[2020-06-19] MEDS: glipiZIDE 10 MG TAB PO SCH (08:58)
[2020-06-19] MEDS: Lisinopril 20 MG TAB PO SCH (09:00)
[2020-06-19] MEDS: Famotidine 20 MG TAB PO SCH ×2 (09:00→20:50)
[2020-06-19] MEDS: traMADol HCl 50 MG TAB PO PRN ×2 (09:02→23:29)
[2020-06-19] MEDS: metFORMIN 500 MG TAB PO SCH ×2 (09:05→18:09)
[2020-06-19 09:26] LABS: Vancomycin, Trough 25.3 ug/mL
--- NOTE | 2020-06-19 09:31 | CT ---
CT of theneck: 06/19/2020 COMPARISON:06/14/2020 HISTORY:Reevaluate posterior scalp abscess TECHNIQUE: Serial axial CT imaging at2.5 mm intervals from theskull base through the lung apices with IV contrast. Coronal and sagittal reformatted imaging obtained Findings:The retroantral fat and the parapharyngeal fat appears clear bilaterally. The visualized paranasal sinuses and mastoid air cells appear well-aerated. Bilateral periapical absc esses are seen involving multiple mandibular teeth. The parotid glands and submandibular glands are unremarkable. Tonsillar pillars, epiglottis and preep iglottic fat, hyoid bone, thyroid cartilage, thyroid gland, cricoid cartilage, and level of the glottis appear grossly unremarkable. The visualized lung apices are unremarkable. There is prominent skin thickening and subcutaneous fat stranding in the posterior occipital and subo ccipital region with increased density within the subcutaneous fat and associated skin thickening posteriorly throughout the neck extending into the upper shoulder regions. Findings suggest extensive cellulitis. There is a hypodense lesion with discontiguous peripheral rim enhancement centered within the subcutaneous fat at the axial level of the craniocervical junction suggesting a subcutaneo us abscess measuring 8.9 cm in transverse dimension, 2.8 cm in AP dimension and at least 6.7 cm in craniocaudal dimension. There has been little interval change in the size when compared to the 020 exam. The abscess appears slightly more well-defined and may demonstrate a slightly more well-defined enhancing border. Vascular structures of the neck appear patent. No significant lymphadenopathy. Osseous structures demonstrate no discrete lytic or blastic bone lesions. Impression:Extensive posterior skin thickening and subcutaneous fat stranding, evidence of cellulitis . There is a rim-enhancing fluid collection in the subcutaneous region centered at the craniocervical junction, evidence of abscess formation.
[2020-06-19] MEDS: Insulin Glargine 10 UNITS in Pre-Filled Syringe 1 EACH SC SCH (10:14)
[2020-06-19] MEDS ORDERED: Iopamidol-370 76% 500 ML 1 ML ONE (10:33)
[2020-06-19] MEDS: HumaLOG 300 UNITS/3 ML VIAL SC PRN (12:22)
--- NOTE | 2020-06-19 13:52 | PDOC.HOSPP ---
- Subjective Encounter Date: 06/19/20 Encounter Time: 11:00 Subjective: Patient seen for follow-up regarding neck abscess. He reports pain in the posterior aspect of the neck. Denies fevers. - Objective Vital Signs & Weight: Vital Signs (12 hours) Temp Pulse Resp BP BP Pulse Ox 06/19/20 09:05 98 06/19/20 09:00 132/87 06/19/20 08:58 85 132/87 06/19/20 07:13 97.7 F 85 20 116/68 98 Weight Weight 156 lb 14.4 oz I&O: 06/18/20 06/19/20 06/20/20 06:59 06:59 06:59 Intake Total 2940 2360 240 Balance 2940 2360 240 Result Diagrams: 06/19/20 05:13 06/19/20 05:13 Additional Labs: Accuchecks 06/19/20 06/19/20 06/18/20 11:53 04:48 20:51 POC Glucose 205 H 151 H 153 H 06/18/20 06/18/20 06/15/20 16:35 11:42 04:23 POC Glucose 109 H 234 H 201 H I reviewed patient's labs and [facility] Hospitalist ROS - Review of Systems Cardiovascular: denies: chest pain, palpitations, orthopnea, paroxysmal noc. dyspnea, edema, light headedness Genitourinary: denies: dysuria, frequency, incontinence, hematuria, retention Musculoskeletal: reports: neck pain - Medication Medications: Active Medications Generic Name Dose Route Start Last Admin Trade Name Freq PRN Reason Stop Dose Admin Acetaminophen 650 mg 06/14/20 15:56 06/14/20 17:18 Acetaminophen 325 Mg Tab PO 650 mg Q4H PRN Administration Headache/Fever/Mild Pain (1-3) Amlodipine Besylate 2.5 mg 06/18/20 09:00 06/19/20 08:58 Amlodipine 5 Mg Tab PO 2.5 mg DAILY PAOLO Administration Famotidine 20 mg 06/14/20 21:00 06/19/20 09:00 Famotidine 20 Mg Tab PO 20 mg BID PAOLO Administration Glipizide 10 mg 06/16/20 09:00 06/19/20 08:58 Glipizide 10 Mg Tab PO 10 mg DAILY PAOLO Administration Cefazolin Sodium/Dextrose 2 gm 50 mls @ 100 mls/hr 06/15/20 14:00 06/19/20 05:32 / Device IVPB 50 mls Q8HR PAOLO Administration Insulin Glargine 10 units/ 0.1 mls @ 0 mls/hr 06/18/20 09:00 06/19/20 10:14 Miscellaneous Medication SC 0.1 mls QAM PAOLO Administration Vancomycin HCl 1.25 gm/ Sodium 250 mls @ 166.667 mls/hr 06/19/20 12:00 06/19/20 12:12 Chloride IVPB 250 mls 0400,1200,2000 PAOLO Administration Insulin Human Lispro 0 units 06/14/20 15:56 06/19/20 12:22 Humalog 300 Units/3 Ml Vial SC 4 unit .MODERATE SLIDING SC PRN Administration Moderate Correctional Scale Insulin Human Lispro 0 units 06/14/20 15:56 06/15/20 20:07 Humalog 300 Units/3 Ml Vial SC 3 unit .BEDTIME SLIDING SC PRN Administration Bedtime Correctional Scale Lisinopril 20 mg 06/16/20 09:00 06/19/20 09:00 Lisinopril 20 Mg Tab PO 20 mg DAILY PAOLO Administration Metformin HCl 500 mg 06/15/20 17:00 06/19/20 09:05 Metformin 500 Mg Tab PO 500 mg BID-WM PAOLO Administration Simvastatin 10 mg 06/15/20 21:00 06/18/20 19:53 Simvastatin 5 Mg Tab PO 10 mg HS PAOLO Administration Sodium Chloride 10 ml 06/19/20 09:00 06/19/20 10:14 Flush - Normal Saline 10 Ml Syringe IVF 10 ml Q12HR PAOLO Administration Tramadol HCl 50 mg 06/15/20 15:01 06/19/20 09:02 Tramadol Hcl 50 Mg Tab PO 50 mg Q6H PRN Administration Pain - Exam General Appearance: awake alert Eye: anicteric sclera ENT: no oropharyngeal lesions Neck: supple Neck - other findings: Posterior neck abscess Heart: RRR Respiratory: CTAB Gastrointestinal: soft, non-tender Extremities: no cyanosis Skin: no rashes Neurological: no weakness Musculoskeletal: normal tone Psychiatric: normal affect, normal behavior Hosp A/P (1) Neck abscess Code(s): L02.11 - CUTANEOUS ABSCESS OF NECK Status: Acute (2) Neck infection Code(s): L08.9 - LOCAL INFECTION OF THE SKIN AND SUBCUTANEOUS TISSUE, UNSP Status: Acute (3) Diabetes mellitus type 2 in nonobese Code(s): E11.9 - TYPE 2 DIABETES MELLITUS WITHOUT COMPLICATIONS Status: Chronic (4) Hypertension Code(s): I10 - ESSENTIAL (PRIMARY) HYPERTENSION Status: Chronic (5) Dyslipidemia Code(s): E78.5 - HYPERLIPIDEMIA, UNSPECIFIED Status: Chronic (6) Hyperkalemia Code(s): E87.5 - HYPERKALEMIA Status: Resolved (7) Hyponatremia Code(s): E87.1 - HYPO-OSMOLALITY AND HYPONATREMIA Status: Resolved - Plan Repeat CT imaging shows neck cellulitis and neck abscess. I have consulted general surgery service for evaluation for surgical options. Continue IV cefazolin. Final blood culture report only grew a contaminant. Hyponatremia resolved Continue Lantus 10 units daily, glipizide and metformin, continue Accu-Cheks and insulin sliding scale. Blood pressure has improved. Patient is on lisinopril 20 mg daily and amlodipine 2.5 mg daily.
--- NOTE | 2020-06-19 17:54 | PRG ---
DATE OF SERVICE: 06/19/2020 SUBJECTIVE: Improvement in the inflammatory process going for surgical debridement tomorrow. OBJECTIVE: VITAL SIGNS: He is afebrile, blood pressure 130/87, O2 saturations 98. GENERAL: Does not appear in distress. NECK: The area in the neck is less swollen, less erythematous. LUNGS: Clear. HEART: S1 and S2, regular rate. ABDOMEN: Soft, not distended. NEUROLOGIC: Nonfocal. LABORATORY DATA: White cell count 8.5, hemoglobin 12.3, and platelets 283. Sodium 137 and creatinine 0.72. Microbiology with Micrococcus from blood culture, likely contaminant. The patient had a soft tissue neck CT and it showed a posterior skin thickening, subcutaneous fat stranding, cellulitis, and rim-enhancing fluid collection in subcutaneous region centered at the craniocervical junction abscess formation. ASSESSMENT AND DISCUSSION: Type 2 diabetes, hyperlipidemia, inflammatory process with abscess in posterior neck region at the occiput, and cellulitis. The patient is going for I and D of the site and then hopefully discharge planning with oral antimicrobial therapy guided by cultures. Job ID: [id number] [facility]Love
--- NOTE | 2020-06-19 19:47 | CON ---
DATE OF CONSULTATION: 06/19/2020 REQUESTING PHYSICIAN: Ubaldo Roman MD HISTORY OF PRESENT ILLNESS: This is a 39-year-old man, who presented with painful posterior neck mass of 3 weeks' duration. The patient reports recurrent pustular lesion in the posterior neck, which is usually exacerbated after sun exposure. He reports that this mass got bigger after he worked under the sun. He has had no fevers or chills. He has been treated on outpatient basis for cellulitis, where a course of antibiotic therapy has failed to resolve this. The patient was admitted here on 06/14/2020 and has been on IV antibiotics since. CT scan of the neck was obtained on admission, which revealed large area of cellulitis. Repeat CT scan today reveals even a larger area of cellulitis with some fluid collection, which is suggestive of an abscess. Currently, the patient reports the pain now 02/05. PAST MEDICAL HISTORY: Pertinent for type 2 diabetes mellitus, essential hypertension, and hyperlipidemia. PAST SURGICAL HISTORY: Denies any previous surgeries. SOCIAL HISTORY: He is , although his family lives in [place]. PREHOSPITALIZATION MEDICATIONS: Include; 1. Pravastatin 20 mg p.o. at bedtime. 2. Metformin 500 mg p.o. b.i.d. 3. Lisinopril 20 mg p.o. daily. 4. Glipizide 10 mg p.o. daily. Currently, he is on amlodipine and lisinopril for blood pressure control. Additionally, he is on vancomycin. ALLERGIES: THE PATIENT HAS NO KNOWN DRUG ALLERGIES. REVIEW OF SYSTEMS: Ten-point review of systems essentially unremarkable except as stated in past medical history and chief complaint. PHYSICAL EXAMINATION: GENERAL: Reveals a 39-year-old normally-developed man, who is otherwise coherent and interactive and appears stated age. The patient is alert and oriented x3, appears to be in no acute distress at the time of my evaluation. VITAL SIGNS: Include blood pressure 116/68, pulse 85, respiratory rate is 20, maximum temperature in last 24 hours is 98.3 degrees Fahrenheit, and oxygen saturation is 98% on room air. HEENT: Pupils are equal, round, and reactive to light and accommodation. NECK: Posterior neck reveals a firm 10 x 8 cm moderately tender soft tissue mass with micro-pustular lesions in the central aspect of this lesion. No active drainage present. There is slight flocculence in the central portion of the lesion. There is erythema of the involved overlying skin. HEART: Reveals regular rate and rhythm. No murmurs or gallops auscultated. LUNGS: Clear to auscultation bilaterally. Breathing, regular and unlabored. ABDOMEN: Soft, nontender, and nondistended. NEUROLOGIC: Reveals no focal deficits present. LABORATORY FINDINGS: Today includes CBC with 8500 white blood cells, hemoglobin and hematocrit are 12.3 and 35.6 respectively, and platelet count 283,000. Metabolic profile; sodium 137, potassium 3.7, chloride is 104, bicarb is 24, BUN 9, creatinine 0.72, and glucose 153. I have personally reviewed the CT scan of the neck, which is obtained today and shows 8.9 x 2.8 x 6.7 cm mass in the posterior neck. This appears to be in the subcutaneous fat and does not extend into the muscle. IMPRESSION: 8.9 x 2.8 x 6.7 cm posterior neck abscess versus infectious sebaceous cyst. PLAN: Incision and drainage versus excisional debridement of this abscess. Above findings and plan has been discussed with the patient through a survey research professor. The patient indicates full understanding of information provided. I have answered his questions. The patient has granted consent for this surgical intervention. Thank you again, Dr. Roman, for allowing me the opportunity to participate in the care of this patient. Job ID: [id number]
[2020-06-19] MEDS: Simvastatin 5 MG TAB PO SCH (20:50)
[2020-06-20] MEDS: Vancomycin HCl 1.25 GM in Sodium Chloride 0.9% 250 ML 250 ML IVPB SCH ×3 (03:25→21:00)
[2020-06-20] MEDS: CEFAZOLIN 2 GM in Premix Bag 1 BAG IVPB SCH ×3 (05:27→22:48)
[2020-06-20] MEDS ORDERED: Midazolam HCl 2 mg/2 ml Vial ONE (13:43)
[2020-06-20] MEDS ORDERED: Famotidine/PF 20 mg/2ml Vial ONE (13:43)
[2020-06-20] MEDS ORDERED: Fentanyl 100 MCG/2 ML VIAL ONE (13:43)
[2020-06-20] MEDS: Famotidine 20 MG TAB PO SCH ×2 (13:56→21:06)
[2020-06-20] MEDS ORDERED: PHENYLEPHRINE-NS 100 MCG/ML 10 ML SYRINGE ONE (14:18)
[2020-06-20] MEDS ORDERED: Rocuronium Bromide 10 MG/ML (10ML VIAL) ONE (14:18)
[2020-06-20] MEDS ORDERED: Ondansetron PF 4 MG/2 ML Vial ONE (14:18)
[2020-06-20] MEDS ORDERED: Lidocaine 1% PF 5 ML VIAL ONE (14:18)
[2020-06-20] MEDS ORDERED: PROPOFOL 200 MG/20 ML VIAL ONE (14:18)
[2020-06-20] MEDS ORDERED: Metoclopramide HCl 10 MG/2 ML VIAL ONE (14:18)
[2020-06-20] MEDS ORDERED: Ondansetron HCl/PF 4 MG/2 ML Vial IVP PRN (15:09)
[2020-06-20] MEDS ORDERED: Promethazine HCl 25 MG/ML VIAL IM PRN (15:09)
[2020-06-20] MEDS ORDERED: Promethazine HCl 25 MG/ML VIAL SLOW IVP PRN (15:09)
[2020-06-20] MEDS: metFORMIN 500 MG TAB PO SCH ×2 (15:51→16:19)
--- NOTE | 2020-06-20 16:17 | PDOC.HOSPP ---
- Subjective Encounter Date: 06/20/20 Encounter Time: 06:40 Subjective: Pt seen for followup re: neck abscess. Denies fevers. - Objective Vital Signs & Weight: Vital Signs (12 hours) Pulse Ox 06/20/20 08:15 98 Weight Weight 156 lb 14.4 oz I&O: 06/19/20 06/20/20 06/21/20 06:59 06:59 06:59 Intake Total 2360 2510 Balance 2360 2510 Result Diagrams: 06/19/20 05:13 06/19/20 05:13 Additional Labs: Accuchecks 06/20/20 06/20/20 06/19/20 09:36 04:42 20:55 POC Glucose 191 H 161 H 156 H I reviewed labs and [place] Hospitalist ROS - Review of Systems Constitutional: denies: fever, chills, sweats, weakness, malaise Cardiovascular: denies: chest pain, palpitations, orthopnea, paroxysmal noc. dyspnea, edema, light headedness Genitourinary: denies: dysuria, frequency, incontinence, hematuria, retention Musculoskeletal: reports: neck pain - Medication Medications: Active Medications Generic Name Dose Route Start Last Admin Trade Name Freq PRN Reason Stop Dose Admin Acetaminophen 650 mg 06/14/20 15:56 06/14/20 17:18 Acetaminophen 325 Mg Tab PO 650 mg Q4H PRN Administration Headache/Fever/Mild Pain (1-3) Amlodipine Besylate 2.5 mg 06/18/20 09:00 06/19/20 08:58 Amlodipine 5 Mg Tab PO 2.5 mg DAILY PAOLO Administration Famotidine 20 mg 06/14/20 21:00 06/20/20 13:56 Famotidine 20 Mg Tab PO 20 mg BID PAOLO Administration Glipizide 10 mg 06/16/20 09:00 06/19/20 08:58 Glipizide 10 Mg Tab PO 10 mg DAILY PAOLO Administration Cefazolin Sodium/Dextrose 2 gm 50 mls @ 100 mls/hr 06/15/20 14:00 06/20/20 14:06 / Device IVPB 50 mls Q8HR PAOLO Administration Insulin Glargine 10 units/ 0.1 mls @ 0 mls/hr 06/18/20 09:00 06/19/20 10:14 Miscellaneous Medication SC 0.1 mls QAM PAOLO Administration Vancomycin HCl 1.25 gm/ Sodium 250 mls @ 166.667 mls/hr 06/19/20 12:00 06/20/20 11:51 Chloride IVPB 250 mls 0400,1200,2000 PAOLO Administration Insulin Human Lispro 0 units 06/14/20 15:56 06/19/20 12:22 Humalog 300 Units/3 Ml Vial SC 4 unit .MODERATE SLIDING SC PRN Administration Moderate Correctional Scale Insulin Human Lispro 0 units 06/14/20 15:56 06/15/20 20:07 Humalog 300 Units/3 Ml Vial SC 3 unit .BEDTIME SLIDING SC PRN Administration Bedtime Correctional Scale Lisinopril 20 mg 06/16/20 09:00 06/19/20 09:00 Lisinopril 20 Mg Tab PO 20 mg DAILY PAOLO Administration Metformin HCl 500 mg 06/15/20 17:00 06/20/20 15:51 Metformin 500 Mg Tab PO Not Given BID-WM PAOLO Ondansetron HCl 4 mg 06/20/20 15:09 06/20/20 14:39 Ondansetron Hcl/Pf 4 Mg/2 Ml Vial IVP 06/20/20 18:09 4 mg ONE PRN Administration Nausea/Vomiting Simvastatin 10 mg 06/15/20 21:00 06/19/20 20:50 Simvastatin 5 Mg Tab PO 10 mg HS PAOLO Administration Sodium Chloride 10 ml 06/19/20 09:00 06/20/20 08:00 Flush - Normal Saline 10 Ml Syringe IVF 10 ml Q12HR PAOLO Administration Tramadol HCl 50 mg 06/15/20 15:01 06/19/20 23:29 Tramadol Hcl 50 Mg Tab PO 50 mg Q6H PRN Administration Pain - Exam General Appearance: awake alert Eye: anicteric sclera ENT: moist mucosa Neck: supple Heart: no rubs Respiratory: normal chest expansion Gastrointestinal: soft, non-tender Skin: no rashes Psychiatric: normal affect, normal behavior Hosp A/P (1) Neck abscess Code(s): L02.11 - CUTANEOUS ABSCESS OF NECK Status: Acute (2) Neck infection Code(s): L08.9 - LOCAL INFECTION OF THE SKIN AND SUBCUTANEOUS TISSUE, UNSP Status: Acute (3) Diabetes mellitus type 2 in nonobese Code(s): E11.9 - TYPE 2 DIABETES MELLITUS WITHOUT COMPLICATIONS Status: Chronic (4) Hypertension Code(s): I10 - ESSENTIAL (PRIMARY) HYPERTENSION Status: Chronic (5) Dyslipidemia Code(s): E78.5 - HYPERLIPIDEMIA, UNSPECIFIED Status: Chronic (6) Hyperkalemia Code(s): E87.5 - HYPERKALEMIA Status: Resolved (7) Hyponatremia Code(s): E87.1 - HYPO-OSMOLALITY AND HYPONATREMIA Status: Resolved - Plan Pt awaiting I&D. Continue IV cefazolin. Hyponatremia resolved Continue Lantus 10 units daily, glipizide and metformin, continue Accu-Cheks and insulin sliding scale. Continue lisinopril 20 mg daily and amlodipine 2.5 mg daily.
[2020-06-20] MEDS: Lisinopril 20 MG TAB PO SCH (16:18)
[2020-06-20] MEDS: glipiZIDE 10 MG TAB PO SCH (16:18)
[2020-06-20] MEDS: Amlodipine 5 MG TAB PO SCH (16:19)
[2020-06-20] MEDS: Insulin Glargine 10 UNITS in Pre-Filled Syringe 1 EACH SC SCH (16:19)
[2020-06-20 20:05] LABS: Vancomycin, Trough 20.8 ug/mL
--- NOTE | 2020-06-20 20:11 | OP ---
DATE OF PROCEDURE: 06/20/2020 PREOPERATIVE DIAGNOSIS: 8.9 x 2.8 x 6.7 cm posterior neck abscess. POSTOPERATIVE DIAGNOSIS: 8.9 x 2.8 x 6.7 cm posterior neck abscess. PROCEDURE PERFORMED: Incision and drainage of above abscess. ANESTHESIA: General endotracheal. ESTIMATED BLOOD LOSS: 10 mL. FLUIDS GIVEN: 300 mL crystalloids. COUNTS: Sponge and instrument counts were verified as correct x2. COMPLICATIONS: None apparent at the time of operation. INDICATIONS FOR OPERATION: This is a 39-year-old man, who presented with a 3-week history of painful mass in the posterior aspect of his neck. Serial CT scan of the neck reveals an abscess measuring 8.9 x 2.8 x 6.7 cm in dimensions. The patient was brought to the operating room today for incision and drainage. Findings are consistent with flocculent posterior neck abscess with purulent pus. DESCRIPTION OF PROCEDURE: Informed consent was obtained from the patient, who was brought to the operating room and placed in supine position. Following general anesthesia, the patient was placed in prone position. The posterior neck was sterilely prepped and draped in usual fashion. The neck mass was palpated and there was central flocculence. 2 cm transverse incision was made over the dome of this mass and the abscess cavity was entered. Large amount of purulent pus was evacuated. Cultures were taken. The abscess cavity was copiously irrigated with saline. Hemostasis was achieved using cautery. The abscess cavity was then packed with sterile saline saturated gauze strips. Sterile dressings were applied. The patient tolerated this procedure without any apparent complication and was returned to recovery room in satisfactory condition. Job ID: [id number]
[2020-06-20] MEDS: Simvastatin 5 MG TAB PO SCH (21:06)
--- NOTE | 2020-06-21 00:55 | PRG ---
DATE OF SERVICE: 06/20/2020 SUBJECTIVE: The patient was seen this evening postop day #0, status post I and D of neck abscess. Upon my evaluation, the patient was sleeping on his left side with no signs of acute distress. Nursing reported no acute events. OBJECTIVE: VITAL SIGNS: Temperature 97.4, pulse 61, respirations 18, oxygen saturation 99% on room air, and blood pressure 118/83. GENERAL: Well-appearing young male, lying in bed on his left side, resting comfortably and asleep with no signs of acute distress. PULMONARY: Equal chest rise and fall. No signs of acute respiratory distress. ASSESSMENT: 1. Postop day #0, status post I and D of neck abscess. 2. History of diabetes, hypertension, and hyperlipidemia. PLAN: Continue current diet and pain regimen. Continue antibiotics per recommendations of Infectious Disease. Continue wound care. Trauma Surgery will evaluate the patient again tomorrow. Job ID: [id number]
[2020-06-21] MEDS: Vancomycin HCl 1.25 GM in Sodium Chloride 0.9% 250 ML 250 ML IVPB SCH ×3 (04:37→19:42)
[2020-06-21] MEDS: CEFAZOLIN 2 GM in Premix Bag 1 BAG IVPB SCH ×3 (06:16→22:00)
[2020-06-21] MEDS: HumaLOG 300 UNITS/3 ML VIAL SC PRN ×2 (06:17→18:10)
[2020-06-21] MEDS: Lisinopril 20 MG TAB PO SCH (08:45)
[2020-06-21] MEDS: metFORMIN 500 MG TAB PO SCH ×2 (08:45→18:09)
[2020-06-21] MEDS: glipiZIDE 10 MG TAB PO SCH (08:45)
[2020-06-21] MEDS: Amlodipine 5 MG TAB PO SCH (08:45)
[2020-06-21] MEDS: Famotidine 20 MG TAB PO SCH ×2 (08:45→19:42)
[2020-06-21] MEDS: Insulin Glargine 10 UNITS in Pre-Filled Syringe 1 EACH SC SCH (08:49)
--- NOTE | 2020-06-21 14:30 | PDOC.HOSPP ---
- Subjective Encounter Date: 06/21/20 Encounter Time: 10:00 Subjective: Patient seen for follow-up regarding neck abscess. He reports pain is better. - Objective Vital Signs & Weight: Vital Signs (12 hours) Temp Pulse Resp BP Pulse Ox 06/21/20 12:17 98.3 F 77 18 117/72 100 06/21/20 08:45 80 99 06/21/20 07:39 98.3 F 80 18 120/79 99 06/21/20 04:30 97.8 F 77 16 111/63 100 Weight Weight 156 lb 14.4 oz I&O: 06/20/20 06/21/20 06/22/20 06:59 06:59 06:59 Intake Total 2510 1310 Balance 2510 1310 Result Diagrams: 06/19/20 05:13 06/19/20 05:13 Additional Labs: Accuchecks 06/21/20 06/21/20 06/20/20 11:19 04:55 16:28 POC Glucose 225 H 241 H 150 H I reviewed patient's labs and MAR Hospitalist ROS - Review of Systems Cardiovascular: denies: chest pain, palpitations, orthopnea, paroxysmal noc. dyspnea, edema, light headedness Gastrointestinal: denies: nausea, vomiting, abdominal pain, diarrhea, constipation, melena - Medication Medications: Active Medications Generic Name Dose Route Start Last Admin Trade Name Freq PRN Reason Stop Dose Admin Acetaminophen 650 mg 06/14/20 15:56 06/14/20 17:18 Acetaminophen 325 Mg Tab PO 650 mg Q4H PRN Administration Headache/Fever/Mild Pain (1-3) Amlodipine Besylate 2.5 mg 06/18/20 09:00 06/21/20 08:45 Amlodipine 5 Mg Tab PO 2.5 mg DAILY PAOLO Administration Clonidine 0.1 mg 06/14/20 16:24 06/20/20 17:31 Clonidine 0.1 Mg Tab PO 0.1 mg Q4H PRN Administration SBP GREATER THAN 160 Famotidine 20 mg 06/14/20 21:00 06/21/20 08:45 Famotidine 20 Mg Tab PO 20 mg BID PAOLO Administration Glipizide 10 mg 06/16/20 09:00 06/21/20 08:45 Glipizide 10 Mg Tab PO 10 mg DAILY PAOLO Administration Cefazolin Sodium/Dextrose 2 gm 50 mls @ 100 mls/hr 06/15/20 14:00 06/21/20 06:16 / Device IVPB 50 mls Q8HR PAOLO Administration Insulin Glargine 10 units/ 0.1 mls @ 0 mls/hr 06/18/20 09:00 06/21/20 08:49 Miscellaneous Medication SC 0.1 mls QAM PAOLO Administration Vancomycin HCl 1.25 gm/ Sodium 250 mls @ 166.667 mls/hr 06/19/20 12:00 06/21/20 13:31 Chloride IVPB 250 mls 0400,1200,2000 PAOLO Administration Insulin Human Lispro 0 units 06/14/20 15:56 06/21/20 06:17 Humalog 300 Units/3 Ml Vial SC 4 unit .MODERATE SLIDING SC PRN Administration Moderate Correctional Scale Insulin Human Lispro 0 units 06/14/20 15:56 06/15/20 20:07 Humalog 300 Units/3 Ml Vial SC 3 unit .BEDTIME SLIDING SC PRN Administration Bedtime Correctional Scale Lisinopril 20 mg 06/16/20 09:00 06/21/20 08:45 Lisinopril 20 Mg Tab PO 20 mg DAILY PAOLO Administration Metformin HCl 500 mg 06/15/20 17:00 06/21/20 08:45 Metformin 500 Mg Tab PO 500 mg BID-WM PAOLO Administration Simvastatin 10 mg 06/15/20 21:00 06/20/20 21:06 Simvastatin 5 Mg Tab PO 10 mg HS PAOLO Administration Sodium Chloride 10 ml 06/19/20 09:00 06/21/20 08:49 Flush - Normal Saline 10 Ml Syringe IVF 10 ml Q12HR PAOLO Administration Tramadol HCl 50 mg 06/15/20 15:01 06/19/20 23:29 Tramadol Hcl 50 Mg Tab PO 50 mg Q6H PRN Administration Pain - Exam General Appearance: awake alert Eye: anicteric sclera ENT: moist mucosa Neck: supple Heart: RRR Respiratory: CTAB Gastrointestinal: soft, non-tender Extremities: no edema Psychiatric: normal affect, normal behavior Hosp A/P (1) Neck abscess Code(s): L02.11 - CUTANEOUS ABSCESS OF NECK Status: Acute (2) Neck infection Code(s): L08.9 - LOCAL INFECTION OF THE SKIN AND SUBCUTANEOUS TISSUE, UNSP Status: Acute (3) Diabetes mellitus type 2 in nonobese Code(s): E11.9 - TYPE 2 DIABETES MELLITUS WITHOUT COMPLICATIONS Status: Chronic (4) Hypertension Code(s): I10 - ESSENTIAL (PRIMARY) HYPERTENSION Status: Chronic (5) Dyslipidemia Code(s): E78.5 - HYPERLIPIDEMIA, UNSPECIFIED Status: Chronic (6) Hyperkalemia Code(s): E87.5 - HYPERKALEMIA Status: Resolved (7) Hyponatremia Code(s): E87.1 - HYPO-OSMOLALITY AND HYPONATREMIA Status: Resolved - Plan Status post incision and drainage of neck abscess yesterday. Patient is on IV cefazolin. Hyponatremia resolved Increase Lantus to 13 units daily. Continue lisinopril 20 mg daily and amlodipine 2.5 mg daily.
[2020-06-21 19:11] LABS: Vancomycin, Trough 21.8 ug/mL
[2020-06-21] MEDS: Simvastatin 5 MG TAB PO SCH (19:42)
[2020-06-22] MEDS: Vancomycin HCl 1.25 GM in Sodium Chloride 0.9% 250 ML 250 ML IVPB SCH ×3 (04:31→21:00)
[2020-06-22] MEDS: CEFAZOLIN 2 GM in Premix Bag 1 BAG IVPB SCH ×3 (06:01→22:56)
--- NOTE | 2020-06-22 07:48 | PRG ---
DATE OF SERVICE: 06/21/2020 This patient was seen on morning rounds. SUBJECTIVE: The patient is postoperative day #1, status post I and D of posterior mid neck abscess. Upon evaluation, the patient was standing up and walking around the room. He denied pain even on palpation of the abscess. He denied subjective fever, chills, nausea, vomiting, diarrhea. He had no complaints or questions. OBJECTIVE: VITAL SIGNS: He has been afebrile. His pulse has ranged from 77 to 86. His respirations have ranged from 16 to 18. His saturations have ranged from 99% to 100% on room air. His blood pressures have ranged from systolic 111-151; diastolic 63-81. GENERAL: Well appearing, walking around the room in his gown, in no acute distress. HEENT: NC/AT. Gauze covering the abscess was saturated. Abscess was still packed. There was mild erythema surrounding the abscess, and it was moderately indurated. It is unclear whether this is due to how packed it was or whether the induration is unchanged from prior to surgery. There was no active discharge/drainage. The sutures were intact. There was no pain to palpation. ASSESSMENT: 1. Postoperative day #1, status post incision and drainage of posterior neck abscess. 2. History of diabetes, hypertension, hyperlipidemia. PLAN: Continue current diet and pain regimen. Continue antibiotics as recommended by Infectious Disease. Continued monitoring of blood pressure and address if needed. Continue wound care. Job ID: [id number]
[2020-06-22] MEDS: Amlodipine 5 MG TAB PO SCH (09:01)
[2020-06-22] MEDS: Lisinopril 20 MG TAB PO SCH (09:01)
[2020-06-22] MEDS: Famotidine 20 MG TAB PO SCH ×2 (09:01→21:02)
[2020-06-22] MEDS: metFORMIN 500 MG TAB PO SCH ×2 (09:01→17:37)
[2020-06-22] MEDS: glipiZIDE 10 MG TAB PO SCH (09:02)
[2020-06-22] MEDS: Insulin Glargine 12 UNITS in Pre-Filled Syringe SC SCH (09:07)
[2020-06-22] MEDS: HumaLOG 300 UNITS/3 ML VIAL SC PRN (13:09)
--- NOTE | 2020-06-22 17:45 | PDOC.HOSPP ---
- Subjective Encounter Date: 06/22/20 Encounter Time: :20 Subjective: Seen for follow-up of neck abscess. He denies any pain in the neck. - Objective Vital Signs & Weight: Vital Signs (12 hours) Temp Pulse Resp BP Pulse Ox 06/22/20 12:41 98.0 F 88 18 128/88 99 06/22/20 09:01 91 06/22/20 07:21 97.8 F 91 18 140/84 96 Weight Admit Weight 156 lb 14.4 oz Weight 156 lb 14.4 oz I&O: 06/21/20 06/22/20 06/23/20 06:59 06:59 06:59 Intake Total 1310 1600 Balance 1310 1600 Result Diagrams: 06/19/20 05:13 06/19/20 05:13 Additional Labs: Accuchecks 06/22/20 06/22/20 06/22/20 16:52 11:49 06:13 POC Glucose 86 235 H 203 H 06/21/20 21:15 POC Glucose 160 H I reviewed patient's labs and MAR Hospitalist ROS - Review of Systems Constitutional: denies: fever, chills, sweats, weakness, malaise Gastrointestinal: denies: nausea, vomiting, abdominal pain, diarrhea, constipation, melena, hematochezia - Medication Medications: Active Medications Generic Name Dose Route Start Last Admin Trade Name Freq PRN Reason Stop Dose Admin Acetaminophen 650 mg 06/14/20 15:56 06/14/20 17:18 Acetaminophen 325 Mg Tab PO 650 mg Q4H PRN Administration Headache/Fever/Mild Pain (1-3) Amlodipine Besylate 2.5 mg 06/18/20 09:00 06/22/20 09:01 Amlodipine 5 Mg Tab PO 2.5 mg DAILY PAOLO Administration Clonidine 0.1 mg 06/14/20 16:24 06/20/20 17:31 Clonidine 0.1 Mg Tab PO 0.1 mg Q4H PRN Administration SBP GREATER THAN 160 Famotidine 20 mg 06/14/20 21:00 06/22/20 09:01 Famotidine 20 Mg Tab PO 20 mg BID PAOLO Administration Glipizide 10 mg 06/16/20 09:00 06/22/20 09:02 Glipizide 10 Mg Tab PO 10 mg DAILY PAOLO Administration Cefazolin Sodium/Dextrose 2 gm 50 mls @ 100 mls/hr 06/15/20 14:00 06/22/20 14:49 / Device IVPB 50 mls Q8HR PAOLO Administration Vancomycin HCl 1.25 gm/ Sodium 250 mls @ 166.667 mls/hr 06/19/20 12:00 06/22/20 13:03 Chloride IVPB 250 mls 0400,1200,2000 PAOLO Administration Insulin Glargine 12 units/ 0.12 mls @ 0 mls/hr 06/22/20 09:00 06/22/20 09:07 Miscellaneous Medication SC 0.12 mls QAM PAOLO Administration Insulin Human Lispro 0 units 06/14/20 15:56 06/22/20 13:09 Humalog 300 Units/3 Ml Vial SC 4 unit .MODERATE SLIDING SC PRN Administration Moderate Correctional Scale Insulin Human Lispro 0 units 06/14/20 15:56 06/15/20 20:07 Humalog 300 Units/3 Ml Vial SC 3 unit .BEDTIME SLIDING SC PRN Administration Bedtime Correctional Scale Lisinopril 20 mg 06/16/20 09:00 06/22/20 09:01 Lisinopril 20 Mg Tab PO 20 mg DAILY PAOLO Administration Metformin HCl 500 mg 06/15/20 17:00 06/22/20 17:37 Metformin 500 Mg Tab PO 500 mg BID-WM PAOLO Administration Simvastatin 10 mg 06/15/20 21:00 06/21/20 19:42 Simvastatin 5 Mg Tab PO 10 mg HS PAOLO Administration Sodium Chloride 10 ml 06/19/20 09:00 06/22/20 09:02 Flush - Normal Saline 10 Ml Syringe IVF 10 ml Q12HR PAOLO Administration Tramadol HCl 50 mg 06/15/20 15:01 06/19/20 23:29 Tramadol Hcl 50 Mg Tab PO 50 mg Q6H PRN Administration Pain - Exam General Appearance: awake alert Eye: anicteric sclera ENT: normocephalic atraumatic Neck: supple Heart: RRR Respiratory: CTAB Gastrointestinal: soft, non-tender Skin - other findings: Dressing over neck Musculoskeletal: no muscle wasting Psychiatric: normal affect Hosp A/P (1) Neck abscess Code(s): L02.11 - CUTANEOUS ABSCESS OF NECK Status: Acute (2) Diabetes mellitus type 2 in nonobese Code(s): E11.9 - TYPE 2 DIABETES MELLITUS WITHOUT COMPLICATIONS Status: Chronic (3) Hypertension Code(s): I10 - ESSENTIAL (PRIMARY) HYPERTENSION Status: Chronic (4) Dyslipidemia Code(s): E78.5 - HYPERLIPIDEMIA, UNSPECIFIED Status: Chronic (5) Hyperkalemia Code(s): E87.5 - HYPERKALEMIA Status: Resolved (6) Hyponatremia Code(s): E87.1 - HYPO-OSMOLALITY AND HYPONATREMIA Status: Resolved - Plan Status post incision and drainage of neck abscess 2 days ago. Patient is on IV cefazolin. Abscess cultures are growing gram-positive cocci. Start Glucerna. Continue lisinopril 20 mg daily and amlodipine 2.5 mg daily. Hypertension is controlled.
[2020-06-22] MEDS: Simvastatin 5 MG TAB PO SCH (21:01)
[2020-06-23] MEDS: Vancomycin HCl 1.25 GM in Sodium Chloride 0.9% 250 ML 250 ML IVPB SCH (03:09)
[2020-06-23] MEDS: CEFAZOLIN 2 GM in Premix Bag 1 BAG IVPB SCH (05:33)
[2020-06-23 05:38] LABS: Band 2 % (5-11); Eosinophils 5 % (0-10); Hemoglobin 11.9 g/dL (14.0-18.0); Lymphocytes 43 % (21-51); MDiff Complete? YES; Mean Corpuscular HGB CONC 35.3 g/dL (32.0-36.0); Mean Corpuscular Hemoglobin 31.4 pg (27.0-31.0); Mean Corpuscular Volume 89.2 fL (78.0-98.0); Mean Platelet Volume 7.6 fL (7.4-10.4); Monocytes 10 % (0-10); Neutrophil 39 % (42-75); Platelet Count 219 thou/uL (130-400); Platelet Morphology Comment Appears Adequate; RBC Distribution Width 10.6 % (11.5-14.5); Red Blood Cell (RBC) Count 3.79 mill/uL (4.70-6.10); White Blood Cell (WBC) Count 7.2 thou/uL (4.8-10.8)
[2020-06-23 05:40] LABS: Anion Gap 12 mmol/L (10-20); BUN (Urea Nitrogen) 7 mg/dL (8.9-20.6); Calc. Creatinine Clearance 143 mL/min (70-130); Calcium 8.7 mg/dL (7.8-10.44); Carbon Dioxide 27 mmol/L (22-29); Chloride 106 mmol/L (98-107); Estimated GFR-MDRD Greater than 90; Glucose 127 mg/dL (70-105); Potassium 3.5 mmol/L (3.5-5.1); Sodium 141 mmol/L (136-145)
[2020-06-23 07:01] VITALS: BP 128/79; TEMP 98.4
[2020-06-23] MEDS: Insulin Glargine 12 UNITS in Pre-Filled Syringe SC SCH (08:41)
[2020-06-23] MEDS: Lisinopril 20 MG TAB PO SCH (08:41)
[2020-06-23] MEDS: glipiZIDE 10 MG TAB PO SCH (08:41)
[2020-06-23] MEDS: Famotidine 20 MG TAB PO SCH (08:41)
[2020-06-23] MEDS: metFORMIN 500 MG TAB PO SCH (08:41)
[2020-06-23] MEDS: Amlodipine 5 MG TAB PO SCH (08:42)
--- NOTE | 2020-06-23 09:11 | PRG ---
DATE OF SERVICE: 06/22/2020 This patient was seen during morning rounds. SUBJECTIVE: The patient was sitting comfortably in a chair, in no acute distress, alert and oriented. He denies pain on the site of the I and D. He denies nausea, vomiting, diarrhea, subjective fever, or chills. He has no complaints at this time. He is wondering when he will be able to go home. OBJECTIVE: VITAL SIGNS: He has been afebrile. His pulse has been normal ranging from 77 to 91. His respiratory rate has been normal ranging from 16 to 20. His oxygen level has been normal ranging from 96% to 100% on room air. His blood pressures have been mostly normotensive with one systolic value in the 140s and one in the low 150s. Blood sugars have been poorly controlled ranging from 160 to 241. GENERAL: Well-appearing male, sitting comfortably in a chair, in no acute distress. HEENT: I and D cavity on the posterior neck, covered by gauze. The wound was not packed. There was minimal amount of discharge at the lip of the opening of the wound. There was no obvious edema/erythema/purulence concerning for infection. The opening of the wound measured approximately 4 cm x 3 cm. RESPIRATORY: No respiratory distress. NEUROLOGIC: A and O x4. No focal deficit. PSYCHIATRIC: Good insight and judgement. ASSESSMENT: 1. Posterior neck abscess, status post I and D. 2. Diabetes. 3. Hypertension. PLAN: Continue current pain/diet/medical management. An order has been placed for wound dressing changes to occur twice per day. His nurse has been instructed on the appropriate technique which includes both packing the wound and covering it with gauze. From a surgical standpoint, if he could have somebody come to the hospital to learn how to appropriately do the wound dressing changes, he would be ready for discharge. When discussing this with the patient, he said he has a niece who could potentially help him with this. He is going to attempt to get in contact with her and see if she can come to the hospital for training. Aside from that, as long as he is on oral antibiotics consistent with Dr. Delgado' recommendation, his discharge is dependent on his medical team. The patient is safe to be discharged home. Job ID: [id number]
[2020-06-23 09:41] LABS: Fungus Stain Final report (.)
[2020-06-23] MEDS ORDERED: Cephalexin 250 MG CAP PO SCH (10:00)
[2020-06-23] MEDS: HumaLOG 300 UNITS/3 ML VIAL SC PRN (11:26)
--- NOTE | 2020-06-24 02:23 | DIS ---
DATE OF ADMISSION: 06/14/2020 DATE OF DISCHARGE: 06/23/2020 PRIMARY CARE PROVIDER: Unknown. DISCHARGE DIAGNOSES: 1. Neck abscess. 2. Neck cellulitis. CONDITION OF THE PATIENT ON THE DAY OF DISCHARGE: Stable. I assessed Mr. Miguel A Brady on the day of discharge. He denies any chest pain or shortness of breath. Vital signs are stable. S1 and S2 are heard, regular. Lungs are clear to auscultation bilaterally. DISCHARGE MEDICATIONS: He is being discharged home on cephalexin 500 mg 3 times a day and amlodipine 2.5 mg daily as new medications. Otherwise, no change was made to his pre-admission home medications, which include; 1. Glipizide 10 mg daily. 2. Metformin 500 mg 2 times a day. 3. Lisinopril 20 mg daily. 4. Pravastatin 20 mg at bedtime. CONSULTATIONS DURING THIS HOSPITALIZATION: Infectious Diseases, Dr. Delgado and General Surgery, Dr. Yi. HOSPITAL COURSE: Mr. Miguel A Brady is a pleasant 39-year-old gentleman, who was admitted to [facility] on June 14, 2020, for neck cellulitis. He was seen by Infectious Disease Service. Soft tissue neck CT scan done on June 14 showed infectious and inflammatory changes along the posterior soft tissues. He was started on intravenous antibiotics. Repeat soft tissue neck CT showed extensive posterior skin thickening and subcutaneous fat stranding, evidence of cellulitis. He had a rim enhancing fluid collection in the subcutaneous region centered at the craniocervical junction, evidence of abscess formation. He was seen by General Surgery Service. On June 20, he underwent incision and drainage of the abscess. Blood cultures done at the time of admission showed presence of micrococcus species in one of two cultures, most likely contaminant. The abscess cultures grew Staphylococcus aureus that was resistant to piperacillin and amoxicillin, but was otherwise sensitive. He is being discharged home on Keflex. POST-ACUTE CARE FOLLOWUP: With primary care provider in 3 days. He has been advised to check his blood sugars 3 times a day and show the readings to primary care provider. ACTIVITY: No restrictions. DIET: Diabetic. DISCHARGE DESTINATION: Home. TIME SPENT: Total amount of time spent coordinating this discharge: Thirty-three minutes. Job ID: [id number]
--- NOTE | 2020-06-26 12:50 | PQF ---
CLINICAL DOCUMENTATION CLARIFICATION FORM: Dear : Ubaldo Roman MD Date / Time: 06/26/2020 Please exercise your independent, professional judgment in responding to the clarification form. Clinical indicators are provided on the bottom of this form for your review Please check appropriate box(es): [ x ] Cellulitis related to Diabetic mellitus [ ] Cellulitis not related to Diabetic mellitus [ ] Other diagnosis (Please specify if any) [ ] Unable to determine Physician Signature: Date/Time: For continuity of documentation, please document condition throughout progress notes and discharge summary. Thank You. To be completed by CDI/Coding staff for physician review: Present Clinical Indicators - Signs / Symptoms / Labs Results and Location in Medical Record [x ] Neck cellulitis ED provider report on 06/14 [ x ] Continue IV cefazolin, await cultures Hospital Progress notes on 06/16 [ x ] Diabetes mellitus type 2 in nonobese Hospital Progress notes on 06/15 [ x ] Sugars are still high, start lantus insulin 6 units daily, continue glipizide and metformin Hospital Progress notes on 06/16 [ ] Present Risk Factors Results and Location in Medical Record [ x ] Diabetic mellitus Hospital Progress notes on 06/16 [x ] Neck infection Hospital Progress notes on 06/15 [ ] [ ] Present Treatments Results and Location in Medical Record [ x] Incision and drainage of abscess Op notes on 06/20 [ x ] Vancomycin 1.25 gm IV Medication on 06/15, 06/16 [ x ] Insulin 10 units Medication on 06/18 to 06/21 [ ] CDS/Crime Scene Technician Signature: AAS Phone #: Date/Time: 06/26/2020 This is a permanent part of the Medical Record [facility]
== END 2020-06-23 11:46 | disposition home or self-care (01) | DRG 988 ==
LOC: ERS 10:10 → T4-B 13:34
PROVIDERS: ADMIT Internal Medicine; ATTEND Internal Medicine
PROC: 0J950ZZ Drainage of Left Neck Subcutaneous Tissue and Fascia, Open Approach (ICD-10-PCS; principal; 2020-06-20)
DX: E11.628 Type 2 diabetes mellitus with other skin complications (principal); L03.221 Cellulitis of neck; E87.1 Hypo-osmolality and hyponatremia; E11.65 Type 2 diabetes mellitus with hyperglycemia; E78.5 Hyperlipidemia, unspecified; E87.5 Hyperkalemia; I10 Essential (primary) hypertension; Z79.84 Long term (current) use of oral hypoglycemic drugs; Z20.828 Contact with and (suspected) exposure to other viral communicable diseases
CPT/HCPCS: 36415; 36416; 36600; 70491; 80048; 80053; 80202; 83605; 85007; 85025; 85027; 87040; 87070; 87077; 87102; 87149; 87186; 87205; 87206; 87635; 96365; 96367; 96375; J0690; J0692; J0696; J1815; J1885; J2250; J2405; J2704; J2765; J3010; J3370; J3490; J7050; Q9967; S0028; U0003

== ENCOUNTER 2022-02-07 12:11 | Emergency (ER) | payer SELFPAY ==
[2022-02-07] MEDS ORDERED: Cefepime 2 GM VIAL ONE (14:06)
[2022-02-07] MEDS ORDERED: Vancomycin 1 GM/200 ML BAG ONE (14:06)
[2022-02-07 14:23] LABS: #Eosinphils 0.2 thou/uL (0.0-0.7); #Lymphocytes 1.5 thou/uL (1.20-3.40); #Monocytes 0.4 thou/uL (0.11-0.59); #Neutrophils 4.2 thou/uL (1.40-6.50); %Basophils 0.5 % (0.0-1.0); %Eosinophils 3.5 % (0.0-10.0); %Lymphocytes 24.1 % (21.0-51.0); %Monocytes 5.6 % (0.0-10.0); %Neutrophils 66.3 % (42.0-75.0); Hemoglobin 11.8 g/dL (14.0-18.0); Mean Corpuscular HGB CONC 33.8 g/dL (32.0-36.0); Mean Corpuscular Volume 85.7 fL (78.0-98.0); Mean Platelet Volume 7.9 fL (7.4-10.4); Platelet Count 192 thou/uL (130-400); RBC Distribution Width 12.1 % (11.5-14.5); Red Blood Cell (RBC) Count 4.06 mill/uL (4.70-6.10); White Blood Cell (WBC) Count 6.3 thou/uL (4.8-10.8)
[2022-02-07 14:45] LABS: ALT (SGPT) 10 U/L (8-55); AST (SGOT) 13 U/L (5-34); Albumin 3.7 g/dL (3.5-5.0); Alkaline Phosphatase 116 U/L (40-110); Anion Gap 13 mmol/L (10-20); BUN (Urea Nitrogen) 28 mg/dL (8.9-20.6); Bilirubin, Total 0.5 mg/dL (0.2-1.2); Calc. Creatinine Clearance 0 mL/min (70-130); Calcium 9.4 mg/dL (7.8-10.44); Carbon Dioxide 29 mmol/L (22-29); Chloride 90 mmol/L (98-107); Globulin 4.5 g/dL (2.4-3.5); Potassium 4.4 mmol/L (3.5-5.1); Protein, Total 8.2 g/dL (6.0-8.3); Sodium 128 mmol/L (136-145)
[2022-02-07 14:59] LABS: Glucose 704 mg/dL (70-105)
== END 2022-02-07 17:17 | disposition short-term general hospital (02) ==
LOC: ERS 12:11
DX: E11.69 Type 2 diabetes mellitus with other specified complication (principal); M86.9 Osteomyelitis, unspecified; E11.52 Type 2 diabetes mellitus with diabetic peripheral angiopathy with gangrene; I96 Gangrene, not elsewhere classified
CPT/HCPCS: 36416; 80053; 83605; 85025; 87040; 96365; 96366; J0692; J3370